=== PATIENT | female | born 1965 | race Caucasian/White ===

== ENCOUNTER 2020-11-28 14:08 | Inpatient (IN) | payer MEDICARE, MEDICAID ==
[~2020-11-28] VITALS: Ht 162.6 cm; Wt 56.9 kg
[2020-11-28] MEDS ORDERED: KETOROLAC 15 MG/ML VIAL. IVP ONE (14:30)
[2020-11-28] MEDS ORDERED: IV NORMAL SALINE 1,000ML 1,000 ML IV ONE ×3 (14:30→18:00)
[2020-11-28] MEDS ORDERED: ONDANSETRON PF 4 MG/2 ML VIAL. IVP ONE (14:30)
[2020-11-28] MEDS ORDERED: FAMOTIDINE 20 MG/2 ML VIAL IVP ONE (14:30)
--- NOTE | 2020-11-28 14:41 | PHYS DOC ---
General Adult EDM: Chief Complaint: OTHER COMPLAINTS HPI: HPI: History obtained from patient. Patient is a 55-year-old female past medical history significant for opioid dependence, cholecystectomy, hysterectomy who presents with chief complaint of abdominal pain with vomiting. She states she stopped taking her morphine 2 days ago. She states that she is not sure why she stopped taking it. She states she typically takes 20 mg of morphine 4-5 times a day. She states she is from [facility] that has as prescribed by different physician. She states that she just came in town to visit her daughter. She notes pain is diffuse in nature. She does note some loose stools. She has not multiple spells of nonbloody nonbilious emesis. States pain is cramping in nature. Denies chest pain or shortness of breath. Denies syncope. States she is had Suboxone in the past but has allergic reaction to this and codeine. Denies fevers. Denies urinary symptoms. No other complaints. Review of Systems: Review of Systems: Constitutional: Denies fever or chills Eyes: Denies change in visual acuity HENT: Denies nasal congestion or sore throat Respiratory: Denies cough or shortness of breath Cardiovascular: Denies chest pain or edema GI: Positive for abdominal pain,, nausea, loose stool : Denies dysuria Musculoskeletal: Denies back pain or joint pain Integument: Denies rash Neurologic: Denies headache, focal weakness or sensory changes Endocrine: Denies polyuria or polydipsia Lymphatic: Denies swollen glands Psychiatric: Denies depression or anxiety Current Medications: Current Meds: Current Medications Medications (Trade) Dose Ordered Sig/Brenda Start Time Stop Time Status Last Admin Dose Admin Famotidine (Pepcid Vial) 20 mg 1X ONCE 11/28/20 14:30 11/28/20 14:31 UNV Ketorolac Tromethamine (Toradol 15mg Vial) 15 mg 1X ONCE 11/28/20 14:30 11/28/20 14:31 UNV Ondansetron HCl (Zofran) 4 mg 1X ONCE 11/28/20 14:30 11/28/20 14:31 UNV Sodium Chloride 1,000 ml @ 1,000 mls/hr 1X ONCE 11/28/20 14:30 11/28/20 15:29 UNV Physical Exam: PE: Constitutional: Well developed, well nourished, no acute distress, non-toxic appearance. [] HENT: Normocephalic, atraumatic, bilateral external ears normal, oropharynx moist, no oral exudates, nose normal. [] Eyes: PERRLA, EOMI, conjunctiva normal, no discharge. [] Neck: Normal range of motion, no tenderness, supple, no stridor. [] Cardiovascular:Heart rate regular rhythm, no murmur [] Lungs & Thorax: Bilateral breath sounds clear to auscultation [] Abdomen: Bowel sounds normal, soft, no tenderness, no masses, no pulsatile masses. [] Skin: Warm, dry, no erythema, no rash. [] Back: No tenderness, no CVA tenderness. [] Extremities: No tenderness, no cyanosis, no clubbing, ROM intact, no edema. [] Neurologic: Alert and oriented X 3, normal motor function, normal sensory function, no focal deficits noted. [] Psychologic: Affect normal, judgement normal, mood normal. [] Current Patient Data: Labs: Laboratory Tests Test 11/28/20 14:58 White Blood Count 14.6 x10^3/uL Red Blood Count 5.79 x10^6/uL Hemoglobin 16.5 g/dL Hematocrit 48.9 % Mean Corpuscular Volume 84 fL Mean Corpuscular Hemoglobin 29 pg Mean Corpuscular Hemoglobin Concent 34 g/dL Red Cell Distribution Width 13.8 % Platelet Count 437 x10^3/uL Neutrophils (%) (Auto) 79 % Lymphocytes (%) (Auto) 12 % Monocytes (%) (Auto) 9 % Eosinophils (%) (Auto) 0 % Basophils (%) (Auto) 0 % Neutrophils # (Auto) 11.5 x10^3uL Lymphocytes # (Auto) 1.7 x10^3/uL Monocytes # (Auto) 1.4 x10^3/uL Eosinophils # (Auto) 0.0 x10^3/uL Basophils # (Auto) 0.0 x10^3/uL Sodium Level 140 mmol/L Potassium Level 3.2 mmol/L Chloride Level 92 mmol/L Carbon Dioxide Level 34 mmol/L Anion Gap 14 Blood Urea Nitrogen 29 mg/dL Creatinine 2.3 mg/dL Estimated GFR (Cockcroft-Gault) 22.2 BUN/Creatinine Ratio 13 Glucose Level 323 mg/dL Calcium Level 10.2 mg/dL Total Bilirubin 0.6 mg/dL Aspartate Amino Transf (AST/SGOT) 16 U/L Alanine Aminotransferase (ALT/SGPT) 28 U/L Alkaline Phosphatase 184 U/L Troponin I Quantitative < 0.017 ng/mL Total Protein 10.4 g/dL Albumin 4.4 g/dL Albumin/Globulin Ratio 0.7 Lipase 285 U/L Current Medications Medications (Trade) Dose Ordered Sig/Brenda Route PRN Reason Start Time Stop Time Status Last Admin Dose Admin Sodium Chloride 1,000 ml @ 1,000 mls/hr 1X ONCE IV 11/28/20 14:30 11/28/20 15:29 DC 11/28/20 15:23 Famotidine (Pepcid Vial) 20 mg 1X ONCE IVP 11/28/20 14:30 11/28/20 14:34 DC 11/28/20 15:24 Ketorolac Tromethamine (Toradol 15mg Vial) 15 mg 1X ONCE IVP 11/28/20 14:30 11/28/20 14:34 DC 11/28/20 15:24 Ondansetron HCl (Zofran) 4 mg 1X ONCE IVP 11/28/20 14:30 11/28/20 14:34 DC 11/28/20 15:23 Iohexol (Omnipaque 300 Mg/ml) 75 ml 1X ONCE IV 11/28/20 14:45 11/28/20 14:46 Cancel Info (Do NOT chart on this entry -- for MONITORING) 1 each PRN DAILY PRN MC SEE COMMENTS 11/28/20 14:45 11/30/20 14:44 Cancel EKG: EKG: EKG consistent with normal sinus rhythm. Ventricular rate 91 bpm. Left axis deviation noted. QTC noted to be 516. No acute ischemic change appreciated. No previous for comparison. [] Radiology/Procedures: Radiology/Procedures: [address] [address] IMAGING REPORT Signed PATIENT: JESSICA ENGLISH: [id number] : 1965 LOCATION: ER AGE: 55 SEX: F EXAM STATUS: REG ER ORD. PHYSICIAN: YONY RAMOS DO REASON: abd pain diffuse PROCEDURE: CT ABDOMEN PELVIS WO CONTRAST CT of the abdomen and pelvis without contrast. 11/28/2020 2:44 PM Indication: Reason: abd pain diffuse / Spl. Instructions: / History: Comparison Study: None. Technique: Multidetector CT imaging of the abdomen pelvis is obtained without administration of contrast. Findings: The visualized bilateral lung bases are clear. Prior cholecystectomy noted. Liver is unremarkable. Spleen is unremarkable. The adrenal glands are unremarkable. Visualized pancreas is unremarkable. There is a 3 mm nonobstructing stone in the superior pole the right kidney. Kidneys are otherwise unremarkable. There is a 2 mm round calcification in the expected region of the distal right ureter. Visualization is limited secondary to lack of surrounding fat .No associated hydronephrosis is seen. Findings may represent a small ureteral stone. No comparison is available for review. The bladder is unremarkable in appearance. There is mild distention of the stomach with fluid and minimal gas. The duodenum is also fluid-filled extending into the third portion of the duodenum. Remainder of the small bowel is decompressed. No evidence of small bowel obstruction is seen. No free fluid or free air is seen in the abdomen or pelvis. The large bowel is decompressed. The appendix is poorly visualized. No gross evidence of appendicitis is seen. Mild mesenteric fat stranding is seen. No acute osseous changes are identified. IMPRESSION: 1. Mild fluid distention of the stomach and duodenum. Mild mesenteric stranding. Findings could reflect gastroenteritis. A partial obstruction is felt to be less likely. 2. 2 mm calcification in the expected region of the distal right ureter. Visualization is somewhat limited secondary to lack of surrounding fat. No hydronephrosis is seen. Small nonobstructing ureteral stone is not excluded. CT DOSING PQRS STATEMENT: One or more of the following individualized dose reduction techniques were utilized for this examination: 1. Automated exposure control 2. Adjustment of the mA and/or kV according to patient size 3. Use of iterative reconstruction technique Electronically signed by: Arnold Gray MD (11/28/2020 3:13 PM) [id number] DICTATED AND SIGNED BY: ARNOLD GRAY MD DATE: 11/28/20 1502 CC: PCP,TOBIN; YONY RAMOS DO ~MTH0 0 [] Heart Score: Risk Factors: Risk Factors: DM, Current or recent (<one month) smoker, HTN, HLP, family history of CAD, obesity. Risk Scores: Score 0 - 3: 2.5% MACE over next 6 weeks - Discharge Home Score 4 - 6: 20.3% MACE over next 6 weeks - Admit for Clinical Observation Score 7 - 10: 72.7% MACE over next 6 weeks - Early Invasive Strategies Course & Med Decision Making: Course & Med Decision Making Pertinent Labs and Imaging studies reviewed. (See chart for details) [] Patient is a 55 female who presents with chief complaint of nausea, loose stool, diffuse abdominal discomfort. She does note that she stopped taking multiple home narcotic medications 2 days ago. Reasons unclear. Her symptoms could be related to opiate withdrawal. CT imaging does not reveal any acute surgical emergency. Nonspecific gastroenteritis changes. Patient's labs are concerning for RONAN potentially related to dehydration. Potassium 3.2. Hypochloremia noted. IV fluid resuscitation was initiated. She was given oral magnesium and potassium. I do feel she would benefit from hospitalization for treatment of her dehydration. Case discussed with hospitalist Dr. Guzman. He agrees with plan of care and is excepted the patient. She remains hemodynamically stable. hCe Disclaimer: Che Disclaimer: This electronic medical record was generated, in whole or in part, using a voice recognition dictation system. Departure Departure: Impression: Primary Impression: Acute renal failure Qualified Codes: N17.9 - Acute kidney failure, unspecified Additional Impressions: Hypokalemia Opioid withdrawal Abdominal pain Qualified Codes: R10.84 - Generalized abdominal pain Disposition: ADMITTED INPT THIS HOSP Condition: STABLE Referrals: PCPTOBIN (PCP) YONY RAMOS DO Nov 28, 2020 14:41
[2020-11-28] MEDS ORDERED: IOHEXOL 300 MG/ML 75 ML VIAL. IV ONE (14:45)
[2020-11-28] MEDS ORDERED: CONTRAST GIVEN. MC PRN (14:45)
--- NOTE | 2020-11-28 14:51 | RAD ---
XR CHEST 1V History: Reason: CP / Spl. Instructions: / History: Comparison: None. Findings: Ill-defined bibasilar opacities. No pleural effusion. No pneumothorax. Normal heart size. Calcified l eft midlung pulmonary nodule, likely prior granulomatous disease. Impression: 1. Ill-defined bibasilar opacities, likely atelectasis. Electronically signed by: Abdulkadir Gallardo DO (11/28/2020 2:49 PM) [id number]
--- NOTE | 2020-11-28 15:15 | RAD ---
CT of the abdomen and pelvis without contrast. 11/28/2020 2:44 PM Indication: Reason: abd pain diffuse / Spl. Instructions: / History: Comparison Study: None. Technique: Multidetector CT imaging of the abdomen pelvis is obtained without administration of contr ast. Findings: The visualized bilateral lung bases are clear. Prior cholecystectomy noted. Liver is unremarkable. Spleen is unremarkable. The adrenal glands are un remarkable. Visualized pancreas is unremarkable. There is a 3 mm nonobstructing stone in the superior pole the right kidney. Kidneys are otherwise unremarkable. There is a 2 mm round calcification in th e expected region of the distal right ureter. Visualization is limited secondary to lack of surroundi ng fat .No associated hydronephrosis is seen. Findings may represent a small ureteral stone. No colin rison is available for review. The bladder is unremarkable in appearance. There is mild distention of the stomach with fluid and minimal gas. The duodenum is also fluid-filled extending into the third portion of the duodenum. Remainder of the small bowel is decompressed. No e vidence of small bowel obstruction is seen. No free fluid or free air is seen in the abdomen or pelvi s. The large bowel is decompressed. The appendix is poorly visualized. No gross evidence of appendici tis is seen. Mild mesenteric fat stranding is seen. No acute osseous changes are identified. IMPRESSION: 1. Mild fluid distention of the stomach and duodenum. Mild mesenteric stranding. Findings could refle ct gastroenteritis. A partial obstruction is felt to be less likely. 2. 2 mm calcification in the expected region of the distal right ureter. Visualization is somewhat li mited secondary to lack of surrounding fat. No hydronephrosis is seen. Small nonobstructing ureteral stone is not excluded. CT DOSING PQRS STATEMENT: One or more of the following individualized dose reduction techniques were utilized for this examinat ion: 1. Automated exposure control 2. Adjustment of the mA and/or kV according to patient size 3. Use of iterative reconstruction technique Electronically signed by: Arnold Law MD (11/28/2020 3:13 PM) [id number]
[2020-11-28 15:25] LABS: BASO % 0 % (0-3); EOS % 0 % (0-3); HEMATOCRIT 48.9 % (36.0-47.0); HEMOGLOBIN 16.5 g/dL (12.0-15.5); LYMPH # 1.7 x10^3/uL (1.0-4.8); LYMPH % 12 % (24-48); MEAN CORPUSCULAR HEMOGLOBIN 29 pg (25-35); MEAN CORPUSCULAR HGB CONC 34 g/dL (31-37); MEAN CORPUSCULAR VOLUME 84 fL (79-100); MONO # 1.4 x10^3/uL (0.0-1.1); MONO % 9 % (0-9); NEUT # 11.5 x10^3uL (1.8-7.7); NEUT % 79 % (31-73); PLATELET COUNT 437 x10^3/uL (140-400); RED BLOOD COUNT 5.79 x10^6/uL (3.50-5.40); RED CELL DISTRIBUTION WIDTH 13.8 % (11.5-14.5); WHITE BLOOD COUNT 14.6 x10^3/uL (4.0-11.0)
[2020-11-28 15:45] LABS: CALCIUM 10.2 mg/dL (8.5-10.1); CREATININE 2.3 mg/dL (0.6-1.0); GFR 22.2; POTASSIUM 3.2 mmol/L (3.5-5.1)
[2020-11-28 15:46] LABS: ALBUMIN 4.4 g/dL (3.4-5.0); ALBUMIN/GLOBULIN RATIO 0.7 (1.0-1.7); TOTAL BILIRUBIN 0.6 mg/dL (0.2-1.0); TOTAL PROTEIN 10.4 g/dL (6.4-8.2)
--- NOTE | 2020-11-28 16:05 | EKG ---
[address] [address] Test Date: 2020-11-28 Test Time: 14:20:56 Pat Name: JESSICA ENGLISH Department: Room: Gender: F [employer] Supervisor: CLOTILDE : 1965 Requested By: YONY RAMOS Order Number: [id number] Reading MD: Measurements Intervals [place] Rate: 91 P: -9 [place]: 120 QRS: -34 QRSD: 86 T: 52 QT: 418 QTc: 516 Interpretive Statements SINUS RHYTHM LEFT ATRIAL ABNORMALITY ABNORMAL LEFT AXIS DEVIATION PROLONGED QT ABNORMAL ECG RI6.02 No previous ECG available for comparison
[2020-11-28] MEDS ORDERED: MAGNESIUM OXIDE 400 MG TABLET PO ONE (16:15)
[2020-11-28] MEDS ORDERED: ONDANSETRON PF 4 MG/2 ML VIAL. IVP PRN ×2 (16:15→17:45)
[2020-11-28] MEDS ORDERED: POTASSIUM CHLORIDE 20 MEQ TABLET.ER. PO ONE ×2 (16:15→18:30)
[2020-11-28] MEDS ORDERED: METOCLOPRAMIDE HCL 10 MG/2 ML VIAL. IVP ONE (16:15)
[2020-11-28 16:46] LABS: BACTERIA,URINE MANY /HPF (0-FEW); BILIRUBIN,URINE NEG (NEG); CLARITY,URINE CLOUDY; COLOR,URINE AMBER; GLUCOSE,URINE NEG (NEG); NITRITE,URINE NEG (NEG); SQUAMOUS EPITHELIAL CELL,UR MANY /LPF
[2020-11-28 16:47] LABS: GRANULAR CASTS,URINE OCC /HPF; HYALINE CASTS, URINE FEW /HPF
[2020-11-28] MEDS ORDERED: LISINOPRIL (18:01)
[2020-11-28] MEDS ORDERED: LANTUS (18:01)
[2020-11-28] MEDS ORDERED: ASPIRIN (18:01)
[2020-11-28] MEDS ORDERED: HUMALOG (18:01)
[2020-11-28] MEDS ORDERED: METOPROLOL (18:01)
[2020-11-28] MEDS ORDERED: MORPHINE (18:01)
[2020-11-28 18:05] VITALS: BP 183/111
[2020-11-28] MEDS: MORPHINE SULFATE 4 MG/ML DISP.SYRIN. IV PRN ×2 (18:24→22:36)
[2020-11-28] MEDS: LABETALOL 20 MG/4 ML DISP.SYRIN. IVP PRN ×2 (18:25→22:35)
[2020-11-28] MEDS ORDERED: POTASSIUM CHLORIDE 10MEQ 100 ML IV SCH ×2 (18:30)
--- NOTE | 2020-11-28 18:30 | HP ---
ADMIT DATE: 11/28/2020 HISTORY OF PRESENT ILLNESS: The patient is a 55-year-old female patient originally from [place] who came to be with her daughter and she presented with chief complaint of abdominal pain and vomiting. She stated that she stopped taking her morphine 2 days ago. She stated that she is not sure why she stopped taking it. She typically takes 20 mg of morphine 4-5 times a day. She stated she is from [place], [place] and that has prescribed by different physician. She stated just coming town to visit her daughter. She notes pain is diffuse in nature. She does note some loose stools and she has multiple episodes of nonbloody bilious emesis. States that she is cramping in nature. Denies any chest pain or shortness of breath. Denied any syncope. She stated that she has had Suboxone in the past, but has allergic reaction to this and codeine. Denied any fever. Denied any urinary symptoms or other complaints. She was extensively investigated in the Emergency Room, was found to have acute kidney injury. Her creatinine was 2.3. She has hypokalemia, also hyperglycemic. Her white cell count was slightly elevated at 14,600. She clearly dehydrated; however, her urine showed that the patient was cloudy, pH of 6.5, specific gravity 1.030. There is large amount of protein, negative for glucose, negative for leukocyte esterase. There were 3-5 rbc's, 5-10 wbc's, and too many bacteria. She has had a chest x-ray, which was ill-defined bibasilar opacities, likely atelectasis and a CT scan of the abdomen and pelvis without contrast showed that she has mild fluid distention of the stomach and duodenum. Mild mesenteric stranding. Findings could be reflective gastroenteritis, the partial obstruction is felt to be less likely. She has 2.2 mm calcification in the expected region of the distal right ureter. Visualization is somewhat limited secondary to lack of surrounding fat. No hydronephrosis seen. Small nonobstructing ureteral stone is not excluded. The patient was admitted with morphine withdrawal, acute kidney injury, hypokalemia, hyperglycemia. PAST MEDICAL HISTORY: Significant for hypertension, hyperlipidemia, type 2 diabetes. She has also chronic back pain. PAST SURGICAL HISTORY: Significant for cholecystectomy and hysterectomy. ALLERGIES: SHE IS ALLERGIC TO IODINATED CONTRAST MEDIA AND CODEINE. MEDICATIONS: She is currently on following medications: She is on aspirin, Humalog, Lantus, lisinopril, metoprolol, and morphine. FAMILY HISTORY: Noncontributory. SOCIAL HISTORY: She is on disability. She does smoke, does not drink alcohol and has been taking 20 mg morphine 4-5 times a day that she stopped about 2 days ago. Her daughter is in the and she came to visit. She is originally from [place], [place]. REVIEW OF SYSTEMS: As in history of present illness. PHYSICAL EXAMINATION: GENERAL: On arrival to the Emergency Room, she looked well and was clearly in no apparent respiratory distress. No pallor, jaundice, cyanosis or thyromegaly. No jugular venous distension. No limb edema. VITAL SIGNS: Her heart rate was 90, blood pressure was 165/88, temperature was 98, respiratory rate was 16, and oxygen saturation was 99% on room air. HEAD, EYES, EARS, NOSE AND THROAT: Showed normocephalic, atraumatic. NECK: Supple. HEART: Normal first and second heart sounds. No gallop, rub or murmur. CHEST: Clear to auscultation. No crepitation or rhonchi. ABDOMEN: Diffusely tender, but there is no guarding or rigidity. No organomegaly. All hernial orifice intact. Bowel sounds normal. NEUROLOGIC: She is awake, alert, responding appropriately. All cranial nerves intact. EXTREMITIES: She moves extremities spontaneously. LABORATORY DATA: Her lab work on arrival to the Emergency Room showed that her white cell count was 14,600, hemoglobin 16.5, hematocrit 48, MCV 84 and platelet count of 137,000 with normal manual differential. Her chemistry showed a serum sodium 140, potassium 3.2, chloride 92, bicarbonate 34, anion gap of 14, BUN 29, creatinine 2.3, estimated GFR was 22 mL per minute. Her glucose was 323, calcium was 10.2. Total bilirubin, AST, ALT were normal. Alkaline phosphatase slightly elevated. CK was 37. Total protein was high at 10.4. Albumin was 4.4 and serum lipase 285. ASSESSMENT: 1. Morphine withdrawal. 2. Acute kidney injury. 3. Hypokalemia. 4. Type 2 diabetes mellitus. 5. Hypertension. 6. Hyperlipidemia. 7. Chronic back pain. PLAN: Rehydrate aggressively. She has received 2 liters of fluid in the Emergency Room. We will add another liter and then switch her to half normal saline. She will be continued on morphine 4 mg IV every 4 hours and Zofran 4 mg IV every 4 hours, labetalol 10 mg IV every 4 hours systolic pressure more than 160. I will repeat all her labs tonight and tomorrow morning and decide further management accordingly. DOMINIC MCMULLEN MD DR: ABDON/ariella JOB#: [id number] / [id number]
[2020-11-28] MEDS ORDERED: DEXTROSE 50% 25 GM / 50ML DISP.SYRIN. IV PRN (19:30)
[2020-11-28] MEDS: IV 1/2 NORMAL SALINE 1,000 ML IV PRN (19:33)
[2020-11-28] MEDS ORDERED: MAGNESIUM OXIDE 400 MG TABLET PO SCH (21:00)
[2020-11-28] MEDS: INSULIN GLARGINE SYRINGE. SQ SCH (21:20)
[2020-11-28 22:25] VITALS: BP 177/82
[2020-11-29] MEDS: MORPHINE SULFATE 4 MG/ML DISP.SYRIN. IV PRN ×5 (02:33→20:02)
[2020-11-29] MEDS: IV 1/2 NORMAL SALINE 1,000 ML IV PRN ×4 (02:38→23:10)
[2020-11-29] MEDS ORDERED: hydrALAZINE 20 MG/ML VIAL. IV PRN (07:45)
[2020-11-29] MEDS: INSULIN LISPRO 300 UNITS/3 ML VIAL. SQ SCH ×3 (07:49→16:55)
[2020-11-29 07:58] VITALS: BP 197/91
[2020-11-29 10:57] VITALS: BP 195/95
[2020-11-29 13:41] LABS: HEMOGLOBIN 12.6 g/dL (12.0-15.5); RED BLOOD COUNT 4.44 x10^6/uL (3.50-5.40); RED CELL DISTRIBUTION WIDTH 13.5 % (11.5-14.5); WHITE BLOOD COUNT 11.9 x10^3/uL (4.0-11.0)
[2020-11-29 13:53] LABS: ALBUMIN/GLOBULIN RATIO 0.7 (1.0-1.7); TOTAL BILIRUBIN 0.5 mg/dL (0.2-1.0); TOTAL PROTEIN 7.6 g/dL (6.4-8.2)
[2020-11-29 13:57] LABS: POTASSIUM 2.8 mmol/L (3.5-5.1)
[2020-11-29] MEDS ORDERED: POTASSIUM CHLORIDE 20 MEQ TABLET.ER. PO ONE ×3 (14:30→16:30)
[2020-11-29] MEDS: POTASSIUM CHLORIDE 10MEQ 100 ML IV SCH ×4 (14:37→17:35)
[2020-11-29] MEDS: POTASSIUM CHLORIDE 20 MEQ TABLET.ER. PO SCH ×3 (14:38→16:45)
[2020-11-29] MEDS: hydrALAZINE 25 MG TABLET PO SCH ×2 (14:38→19:59)
--- NOTE | 2020-11-29 15:14 | PN ---
DATE: SUBJECTIVE: The patient is resting, slightly propped up in bed, in no apparent respiratory distress. She continued to complain of pain. Denied any further episodes of nausea or vomiting. Denied any diarrhea or abdominal pain. She is tolerating her diet. PHYSICAL EXAMINATION: GENERAL: When I examined her, she looked well and was clearly in no apparent respiratory distress. No pallor, jaundice, cyanosis or thyromegaly. No jugular venous distention. No lower limb edema. VITAL SIGNS: Her heart rate was 80, blood pressure was 195/95, temperature was 99.2, respiratory rate was 18 and oxygen saturation was 93% on room air. HEAD, EYES, EARS, NOSE AND THROAT: Showed normocephalic, atraumatic. NECK: Supple. HEART: Normal first and second heart sounds. No gallop, rub or murmur. CHEST: Clear to auscultation. No crepitation or rhonchi. ABDOMEN: Distended, soft, nontender. No guarding or rigidity. No organomegaly. All hernial orifice intact. Bowel sounds normal. NEUROLOGIC: She is grossly intact. Her intake over the last 24 hours was 4400, no output was recorded. LABORATORY DATA: Her lab work this morning showed a white cell count is down to 11,900; hemoglobin 12.6, hematocrit 37; MCV 83 and platelet count 321,000. Her chemistry showed a serum sodium 138, potassium 2.8, chloride 101, bicarbonate 29, anion gap of 8, BUN 22 and creatinine was 1. Her estimated GFR was 58 mL per minute. Her glucose 175, calcium was 8. Total bilirubin, AST, ALT, alkaline phosphatase were normal. Total protein was 7.6, albumin was 3. ASSESSMENT: 1. Morphine withdrawal, improving. 2. Acute kidney injury, resolving. Her creatinine came down from 2.3 to 1. 3. Hypokalemia, worsened. Her potassium this morning was 2.8. 4. Type 2 diabetes mellitus, seems to be reasonably controlled. 5. Hypertension, suboptimally controlled. 6. Hyperlipidemia. 7. Chronic back pain. PLAN: To continue with IV fluid, continue to monitor her blood sugar and adjust insulin as needed. Continue with pain management. Continue with potassium supplementation. I will start her back on her metoprolol and will hold off on lisinopril for now, continue with IV hydralazine. DOMINIC MCMULLEN MD DR: ABDON/ariella JOB#: [id number] / [id number]
[2020-11-29 15:16] LABS: MAGNESIUM 1.7 mg/dL (1.8-2.4)
[2020-11-29 17:06] VITALS: BP 191/114
[2020-11-29] MEDS ORDERED: ACETAMINOPHEN 325 MG TABLET PO PRN (18:00)
[2020-11-29 19:48] VITALS: BP 202/94
[2020-11-29] MEDS: INSULIN GLARGINE SYRINGE. SQ SCH (20:02)
[2020-11-29] MEDS ORDERED: METOPROLOL TART IMMED RELEASE 50 MG TABLET PO SCH (21:00)
[2020-11-29 22:13] VITALS: BP 218/101
[2020-11-30] VITALS (7 sets, daily range): BP systolic 146–203; BP diastolic 89–103
[2020-11-30] MEDS: MORPHINE SULFATE 4 MG/ML DISP.SYRIN. IV PRN ×2 (00:08→04:13)
[2020-11-30] MEDS: LABETALOL 20 MG/4 ML DISP.SYRIN. IVP PRN (04:13)
[2020-11-30] MEDS: IV 1/2 NORMAL SALINE 1,000 ML IV PRN (06:07)
[2020-11-30 06:12] LABS: HEMATOCRIT 38.4 % (36.0-47.0); HEMOGLOBIN 12.9 g/dL (12.0-15.5); RED BLOOD COUNT 4.56 x10^6/uL (3.50-5.40); RED CELL DISTRIBUTION WIDTH 13.6 % (11.5-14.5); WHITE BLOOD COUNT 11.6 x10^3/uL (4.0-11.0)
[2020-11-30 06:30] LABS: CALCIUM 8.3 mg/dL (8.5-10.1); CREATININE 0.7 mg/dL (0.6-1.0); GFR 87.5; POTASSIUM 3.7 mmol/L (3.5-5.1)
[2020-11-30] MEDS: INSULIN LISPRO 300 UNITS/3 ML VIAL. SQ SCH ×3 (07:51→17:00)
[2020-11-30] MEDS: METOPROLOL TART IMMED RELEASE 50 MG TABLET PO SCH ×2 (08:07→20:39)
[2020-11-30] MEDS: MORPHINE IR 15 MG TABLET PO PRN ×3 (08:08→20:39)
--- NOTE | 2020-11-30 19:26 | PN ---
DATE: SUBJECTIVE: The patient is sitting on the edge of the bed comfortably, in no apparent distress. She denied any further episodes of nausea, vomiting or diarrhea. Her blood pressure is much better controlled, although not optimally yet. PHYSICAL EXAMINATION: GENERAL: When I examined her, there was no pallor, jaundice, cyanosis or thyromegaly. No jugular venous distention. No lower limb edema. VITAL SIGNS: Her heart rate was 69, blood pressure was 140/80, temperature was 98.3, respiratory rate was 18 and oxygen saturation was 97%. HEAD, EYES, EARS, NOSE AND THROAT: Normocephalic, atraumatic. NECK: Supple. HEART: Showed normal first and second heart sounds. No gallop or murmur. CHEST: Clear to auscultation. No crepitation or rhonchi. ABDOMEN: Scaphoid, soft, nontender. NEUROLOGIC: She was grossly intact. Her intake was 4400, output was incompletely recorded. LABORATORY DATA: Her lab work as of this morning showed a white cell count of 11,600, hemoglobin 13, hematocrit 38, MCV 84 and platelet count 312,000. Her chemistry showed a serum sodium 137, potassium 3.7, chloride 104, bicarbonate 25, anion gap of 8, BUN 14, creatinine 0.7, estimated GFR was 87 mL per minute. Her glucose 118, calcium was 8.3. ASSESSMENT: 1. Morphine withdrawal, improving. 2. Acute kidney injury, resolved. Her creatinine is down to 0.7. 3. Hypokalemia, resolved. Her potassium is up to 3.7. 4. Type 2 diabetes mellitus, seems to be reasonably controlled. 5. Hypertension, suboptimally controlled. 6. Hyperlipidemia, for which she was on simvastatin. 7. Chronic back pain. PLAN: To continue to monitor her as we made adjustment to her antihypertensive medication. She is now on metoprolol 100 mg twice a day, hydralazine 50 mg 3 times a day. We switched her to morphine sulfate immediate release by mouth. We will continue with insulin sliding scale as well as Lantus insulin. Her blood sugar is very well controlled. If blood pressure remains stable, we will discharge her tomorrow. DOMINIC MCMULLEN MD DR: ABDON/ariella JOB#: [id number] / [id number]
[2020-11-30] MEDS: INSULIN GLARGINE SYRINGE. SQ SCH (20:40)
[2020-11-30] MEDS ORDERED: MELATONIN 3 MG TABLET PO PRN (23:00)
[2020-12-01] MEDS: MORPHINE IR 15 MG TABLET PO PRN ×2 (02:48→09:30)
[2020-12-01 06:36] VITALS: BP 171/87
[2020-12-01] MEDS: INSULIN LISPRO 300 UNITS/3 ML VIAL. SQ SCH ×2 (08:00→12:00)
[2020-12-01] MEDS: METOPROLOL TART IMMED RELEASE 50 MG TABLET PO SCH (08:28)
[2020-12-01 09:36] LABS: CALCIUM 8.3 mg/dL (8.5-10.1); CREATININE 0.7 mg/dL (0.6-1.0); GFR 87.5
[2020-12-01 09:46] LABS: POTASSIUM 3.1 mmol/L (3.5-5.1)
[2020-12-01] MEDS ORDERED: POTASSIUM CHLORIDE 20 MEQ TABLET.ER. PO ONE (10:00)
[2020-12-01 10:32] VITALS: BP 137/80
--- NOTE | 2020-12-01 13:03 | DS ---
DATE OF DISCHARGE: 12/01/2020 HOSPITAL COURSE: The patient is a 55-year-old female patient who was admitted with recurrent bouts of nausea, vomiting and diarrhea. She was diagnosed with morphine withdrawal, found also to have acute kidney injury and profound hypokalemia. She was rehydrated aggressively and her kidney function has normalized. Her potassium improved. She had no more nausea or vomiting. Her blood pressure was high, so we started her also on metoprolol and hydralazine. Her blood pressure has finally improved and a decision was made to discharge her home. PHYSICAL EXAMINATION: GENERAL: When I saw her today, she was sitting on the edge of the bed comfortably, in no apparent respiratory distress. No pallor, jaundice, cyanosis or thyromegaly. No jugular venous distension. No limb edema. VITAL SIGNS: Her heart rate was 63, blood pressure was 137/80, temperature was 97.9, respiratory rate 20, and oxygen saturation was 96% on room air. HEAD, EYES, EARS, NOSE AND THROAT: Showed normocephalic, atraumatic. NECK: Supple. HEART: Showed normal first and second heart sounds with no gallop, rub or murmur. CHEST: Clear to auscultation. No crepitation or rhonchi. ABDOMEN: Distended, soft, nontender. NEUROLOGIC: She was awake, alert, responding appropriately. All cranial nerves are intact. She moves extremities without difficulty. She ambulates without assistance or assistive devices. Her intake and output are incompletely recorded. LABORATORY DATA: Most recent white cell count was 11,600, hemoglobin 12.9, hematocrit 38, MCV 84, platelet count 312,000. Her chemistry showed a serum sodium 139, potassium 3.1, chloride 103, bicarbonate 25, anion gap of 11, BUN 24, creatinine 0.7, estimated GFR was 87 mL per minute. Her glucose was 98 and calcium was 8.3. Her urinalysis showed many bacteria; however, her urine culture has grown greater than 100,000 colony forming units per mL of Enterococcus faecalis that is vancomycin sensitive. DISCHARGE MEDICATIONS: She was discharged home to continue on metoprolol 100 mg twice a day, hydralazine 50 mg 3 times a day, morphine sulfate immediate release 15 mg every 6 hours, Lantus insulin 10 units at bedtime and Humalog insulin as insulin sliding scale 3 times a day before meals. She will be also discharged on amoxicillin 500 mg 3 times a day for 7 days. FINAL DISCHARGE DIAGNOSES: 1. Morphine withdrawal, resolved. 2. Acute kidney injury, resolved. Her creatinine came down from 2.8-0.7. 3. Hypokalemia, resolved. 4. Type 2 diabetes mellitus, seems to be reasonably controlled, currently on Lantus 10 units at bedtime and Humalog insulin before meals as per sliding scale. 5. Hypertension, reasonably controlled. 6. Hyperlipidemia for which she is on simvastatin. 7. Chronic back pain. 8. Urinary tract infection with growth of more than 100,000 colony forming units per mL of Enterococcus faecalis that is vancomycin-resistant. She was discharged on 500 mg of amoxicillin 3 times a day for 7 days. DOMINIC MCMULLEN MD DR: ABDON/ariella JOB#: [id number] / [id number]
== END 2020-12-01 13:33 | disposition home or self-care (01) | DRG 393 ==
LOC: ER 14:08 → 1 SOUTH 16:30 → ER 17:37
PROVIDERS: ADMIT Internal Medicine; ATTEND Internal Medicine
DX: K52.1 Toxic gastroenteritis and colitis (principal); N17.0 Acute kidney failure with tubular necrosis; F11.23 Opioid dependence with withdrawal; N39.0 Urinary tract infection, site not specified; J98.11 Atelectasis; E86.0 Dehydration; T40.2X5A Adverse effect of other opioids, initial encounter; E11.65 Type 2 diabetes mellitus with hyperglycemia; E78.5 Hyperlipidemia, unspecified; E87.6 Hypokalemia; G89.29 Other chronic pain; I10 Essential (primary) hypertension; Z79.4 Long term (current) use of insulin; Z87.891 Personal history of nicotine dependence; Z90.710 Acquired absence of both cervix and uterus; M54.9 Dorsalgia, unspecified; Z88.8 Allergy status to other drugs, medicaments and biological substances; B95.2 Enterococcus as the cause of diseases classified elsewhere; Z90.49 Acquired absence of other specified parts of digestive tract
CPT/HCPCS: 36415; 71045; 74176; 80048; 80053; 81001; 82550; 82947; 83690; 83735; 84484; 85025; 85027; 87077; 87086; 87186; 93005; 96361; 96374; 96375; J0360; J1815; J1885; J2270; J2405; J2765; J3480; J3490; J7030; U0003; 99285-25

== ENCOUNTER 2020-12-05 08:53 | Emergency (ER) | payer MEDICAID, MEDICARE ==
[~2020-12-05] VITALS: Ht 157.5 cm; Wt 56.9 kg
[~2020-12-05 08:53] MED LIST: ASPIRIN; HUMALOG; LANTUS; LISINOPRIL; METOPROLOL; MORPHINE
[2020-12-05] MEDS ORDERED: ORPHENADRINE CITRATE 60 MG/2 ML VIAL. IM ONE (09:45)
[2020-12-05] MEDS ORDERED: KETOROLAC 15 MG/ML VIAL. IVP ONE (09:45)
--- NOTE | 2020-12-05 09:58 | PHYS DOC ---
Past History Past Medical History: Diabetes, Hypertension Additional Past Medical Histor: opiate dependence Past Surgical History: No Surgical History Alcohol Use: None General Adult EDM: Chief Complaint: BACK PAIN OR INJURY HPI: HPI: Patient is a 55-year-old female coming in via EMS for back pain. Patient states she fell a few days ago and landed on her back and left shoulder. Patient states the fall was due to her right knee giving out when she has chronic right knee pain. Denies any loss of consciousness. Patient states the pain has been getting worse to where she is unable to walk and has a difficult time taking deep breaths secondary to pain. Patient has a history significant for chronic back pain and is chronically on opioids. Recently moved here from [place] to stay with daughter. Who was admitted 1 week ago for RONAN secondary to dehydration from gastroenteritis. Patient states she has had difficulty walking urinating as well secondary to pain. No lower extremity numbness or paresthesias. Is able to move her lower extremities but does complain of pain. She states she short s taken Tylenol, ibuprofen, and morphine this morning without relief. Review of Systems: Review of Systems: All other systems within normal limits except for as noted in the HPI Current Medications: Current Meds: Current Medications Medications (Trade) Dose Ordered Sig/Brenda Start Time Stop Time Status Last Admin Dose Admin Ketorolac Tromethamine (Toradol 15mg Vial) 15 mg 1X ONCE 12/05/20 09:45 12/05/20 09:46 DC Orphenadrine Citrate (Norflex) 60 mg 1X ONCE 12/05/20 09:45 12/05/20 09:46 DC Allergies: Allergies: Allergies Coded Allergies Type Severity Reaction Last Updated Verified Iodinated Contrast Media Allergy Intermediate 12/05/20 Yes buprenorphine Allergy Intermediate 12/05/20 Yes codeine Allergy Intermediate 12/05/20 Yes naloxone Allergy Intermediate 12/05/20 Yes Physical Exam: PE: Constitutional: Well developed, well nourished, no acute distress, non-toxic appearance. [] HENT: Normocephalic, atraumatic, bilateral external ears normal, nose normal. [] Eyes: PERRLA, conjunctiva normal, no discharge. [] Neck: No rigidity, supple, no stridor. [] Cardiovascular: Regular rate and rhythm, brisk cap refill [] Lungs & Thorax: Non labored symmetric respirations, no tachypnea or respiratory distress [] Abdomen: Soft, nondistended. Skin: Warm, dry, no erythema, no rash. [] Back: Unremarkable Extremities: No deformities, range of motion grossly intact, no lower extremity edema [] Neurologic: Alert and oriented X 3, no focal deficits noted. [] Psychologic: Affect normal, judgement normal, mood normal. [] Current Patient Data: Vital Signs: Vital Signs Date Time Temp Pulse Resp B/P (MAP) Pulse Ox O2 Delivery O2 Flow Rate FiO2 12/05/20 08:58 97.7 84 14 156/77 (103) 97 Room Air EKG: EKG: [] Radiology/Procedures: Radiology/Procedures: CHEST CT: Calcified left hilar lymph node is seen due to old granulomatous disease. No enlarged thoracic adenopathy is evident. No focal aneurysmal dilatation of the thoracic aorta is seen. Evaluation for intimal flap or dissection cannot be completed due to lack of IV contrast. There is significant calcified atheromatous disease of the coronary arteries. Heart size is mildly enlarged. No pericardial effusion is seen. Calcified granuloma of the posterior inferior aspect of the left upper lobe is seen. Consolidative infiltrates are seen within both posterior lower lobes. In addition, there is a nodular lung infiltrate within the anterior basal segment of the right lower lobe and a nodular lung infiltrate within the lateral basal segment of the left lower lobe. There is another nodular lung infiltrate within the anterior aspect of the left upper lobe measuring 18 mm. Small scattered tiny subcentimeter lung nodules are seen within the right middle lobe and right upper lobe. No pleural effusion or pneumothorax is seen. Proximal bronchial tree is patent. Old healed posterior rib fractures are seen. No acute rib fracture is evident. No compression fracture is evident. No lytic process is seen. IMPRESSION: Bilateral consolidative and nodular lung infiltrates of both posterior lower lobes. This was not seen 7 days ago. There is also a nodular lung infiltrate within the anterior left upper lobe. Findings may reflect infectious or inflammatory disease (such as aspiration pneumonitis) including the possibility of atypical pneumonia such as Covid 19 pneumonia. Mild cardiomegaly. Calcified atheromatous disease of the coronary arteries. ABDOMEN AND PELVIS CT: No hepatic mass is seen on this noncontrast study. No focal enlargement of the pancreas is seen. Spleen is enlarged measuring up to 19.6 cm. The spleen measured 15.6 cm previously. Spleen is homogeneous in appearance and this noncontrast study. The gallbladder is surgically absent. No extrahepatic biliary ductal dilatation is seen. No adrenal mass is evident. Nonobstructing punctate stone of the upper pole of the right kidney is seen. No hydronephrosis or hydroureter is evident. Calcified phleboliths of both sides anatomic pelvis are seen. Urinary bladder is moderately distended. Urinary bladder wall is smooth. Uterus is surgically absent. No focal aneurysmal dilatation of the abdominal aorta is seen. No bulky abdominal or pelvic lymphadenopathy is seen. No obstructive bowel pattern is evident. Previously seen dilatation of the stomach and duodenum has improved. There is a small amount of dependent free fluid within the pelvis. No free air is seen. No lytic process is seen. No compression fracture is seen. Sacrum is intact. IMPRESSION: Splenomegaly which has increased in size from 7 days ago. Small amount of free fluid within the dependent portion of the pelvis. Nonobstructing stone of the right kidney.[] Heart Score: Risk Factors: Risk Factors: DM, Current or recent (<one month) smoker, HTN, HLP, family history of CAD, obesity. Risk Scores: Score 0 - 3: 2.5% MACE over next 6 weeks - Discharge Home Score 4 - 6: 20.3% MACE over next 6 weeks - Admit for Clinical Observation Score 7 - 10: 72.7% MACE over next 6 weeks - Early Invasive Strategies Course & Med Decision Making: Course & Med Decision Making Pertinent Labs and Imaging studies reviewed. (See chart for details) Pneumonia and splenomegaly new from previous visit. Patient with strong drug- seeking behavior. Discussed with patient that she will get 1 prescription today but needs to find a chronic pain management clinic to follow-up with, discussed that we will not refill any more narcotics in the emergency department. Incidental splenomegaly on CT, discussed patient to follow-up with primary care, likely reactive secondary to infection. [] Che Disclaimer: Che Disclaimer: This electronic medical record was generated, in whole or in part, using a voice recognition dictation system. Departure Departure: Impression: Primary Impression: Pneumonia Additional Impression: Chronic back pain Disposition: 01 DC HOME SELF CARE/HOMELESS Condition: STABLE Referrals: PCP,NO (PCP) Patient Instructions: Pneumomediastinum Additional Instructions: You have been tested for or diagnosed with COVID-19. It is an infection caused by a new type of coronavirus. COVID-19 will cause cold-like or mild flu symptoms in most. It can cause more severe symptoms like problems breathing in some. There is no treatment for COVID-19. The body will clear the infection over time. Self-care will help to ease discomfort. Steps to Take: Self-Care Rest as needed. Healthy habits may help you feel better. Steps include: Choose healthy foods including fruits and vegetables. Drink water throughout the day. Get plenty of sleep each night. If you smoke, try to quit. It may ease breathing. Avoid alcohol. Keep Others Healthy The virus can spread to others. Droplets are released every time you sneeze or cough. The droplets can get into the mouth, nose, or eyes of people near you and lead to infection. To lower the chances of spreading COVID-19 to others: Stay at home until your doctor has said it is safe to leave. If you tested positive this will mean staying isolated until both of the following are true: At least 7 days have passed since the start of illness. You are free of fever for at least 72 hours without the use of medicine. During this time: - Avoid public areas, events, or transportation. Do not return to work or school until your doctor has said it is safe to do so. - Call ahead if you need to go to a medical center. Let them know you may have COVID-19. It will help them guide you where to go. They may also ask you to wear a facemask when you come to the office. - If you call for emergency medical services, let them know you may have COVID- 19. While at home: - Try to avoid close contact with others. Stay about 6 feet away. - If possible, spend most of your time in a separate room from others. - Use a face mask if you will be in close contact with others such as sharing a room or vehicle. - Have someone wipe down common surfaces in the home. Use household commercial installer every day on areas like doorknobs, counters, or sinks. - Cough or sneeze into a tissue. Throw the tissue away right after use. If a tissue is not available, cough or sneeze into your elbow. - Wash your hands often. Wash them after sneezing or coughing. Use soap and water and wash for at least 20 seconds. Alcohol based hand equipment cleaner can be used if soap and water is not available. - Do not prepare food for others. Avoid sharing personal items like forks, spoons, or toothbrushes. - Avoid close contact with pets while you are sick. There is no evidence of the virus passing to pets. This is a safety step until more is known about this virus. Isolation can be frustrating. Social interaction can help. Keep in touch with friends and family through phone and tech options. You can still interact with others in your home, just keep a safe distance of about 6 feet. Follow-up: Your doctors office will check in with you to see if there are any changes in your health. You may be asked to keep track of symptoms to share with them. They will also let you know when you are clear to be in public again. Problems to Look Out For: Contact your doctor if your recovery is not going as you expect. Get emergency care if you have problems such as: - Trouble breathing - Nonstop chest pain or pressure - Changes in awareness, confusion, or problems waking - Lips or face have bluish color - Worsening of symptoms If you think you have an emergency, call for emergency medical services right away. As taken from [employer] by [employer] Oxycodone Hcl/Acetaminophen (PERCOCET 10-325 MG TABLET ) 1 Each Tablet 1 TAB PO PRN Q6HRS PRN for PAIN, #15 TAB Prov: DARRELL MARTEL MD 12/05/20 Azithromycin (AZITHROMYCIN TABLET) 250 Mg Tablet 1 PKG PO UD for antibiotic for 5 Days, #6 TAB 0 Refills 2 the first day followed by 1 for days 2-5 Prov: DARRELL MARTEL MD 12/05/20 Prednisone (PREDNISONE) 50 Mg Tablet 1 TAB PO DAILY for steroid for 5 Days, #5 TAB You received this medication in the emergency room today. You will starting your next dose tomorrow. Prov: DARRELL MARTEL MD 12/05/20 DARRELL MARTEL MD Dec 05, 2020 09:58
[2020-12-05 10:21] LABS: BASO % 0 % (0-3); EOS # 0.1 x10^3/uL (0.0-0.7); EOS % 1 % (0-3); HEMATOCRIT 32.1 % (36.0-47.0); HEMOGLOBIN 10.6 g/dL (12.0-15.5); LYMPH # 0.4 x10^3/uL (1.0-4.8); LYMPH % 3 % (24-48); MEAN CORPUSCULAR HEMOGLOBIN 28 pg (25-35); MEAN CORPUSCULAR HGB CONC 33 g/dL (31-37); MEAN CORPUSCULAR VOLUME 85 fL (79-100); MONO # 1.1 x10^3/uL (0.0-1.1); MONO % 8 % (0-9); NEUT # 11.4 x10^3uL (1.8-7.7); NEUT % 87 % (31-73); PLATELET COUNT 221 x10^3/uL (140-400); RED BLOOD COUNT 3.77 x10^6/uL (3.50-5.40)
[2020-12-05 10:36] LABS: CALCIUM 8.3 mg/dL (8.5-10.1); CREATININE 0.9 mg/dL (0.6-1.0); GFR 65.5; POTASSIUM 3.8 mmol/L (3.5-5.1)
[2020-12-05 10:39] LABS: ALBUMIN 2.5 g/dL (3.4-5.0); ALBUMIN/GLOBULIN RATIO 0.6 (1.0-1.7); TOTAL BILIRUBIN 0.4 mg/dL (0.2-1.0)
--- NOTE | 2020-12-05 11:22 | RAD ---
CT STUDY OF THE CHEST AND ABDOMEN AND PELVIS WITHOUT CONTRAST CLINICAL INDICATIONS: Fall. Left upper and lower back pain. TECHNIQUE: Noncontrast helical CT scanning of the abdomen and pelvis was performed. Without contrast, the sensitivity to detect organ pathology and GI tract pathology is decreased. PQRS compliance Statement One or more of the following individualized dose reduction techniques were utilized for this study: 1. Automated exposure control 2. Adjustment of the mA and/or kV according to patient size 3. Use of iterative reconstruction technique COMPARISON: November 28, 2020. CHEST CT: Calcified left hilar lymph node is seen due to old granulomatous disease. No enlarged thora cic adenopathy is evident. No focal aneurysmal dilatation of the thoracic aorta is seen. Evaluation f or intimal flap or dissection cannot be completed due to lack of IV contrast. There is significant ca lcified atheromatous disease of the coronary arteries. Heart size is mildly enlarged. No pericardial effusion is seen. Calcified granuloma of the posterior inferior aspect of the left upper lobe is seen . Consolidative infiltrates are seen within both posterior lower lobes. In addition, there is a nodul ar lung infiltrate within the anterior basal segment of the right lower lobe and a nodular lung infil trate within the lateral basal segment of the left lower lobe. There is another nodular lung infiltra te within the anterior aspect of the left upper lobe measuring 18 mm. Small scattered tiny subcentime ter lung nodules are seen within the right middle lobe and right upper lobe. No pleural effusion or p neumothorax is seen. Proximal bronchial tree is patent. Old healed posterior rib fractures are seen. No acute rib fracture is evident. No compression fracture is evident. No lytic process is seen. IMPRESSION: Bilateral consolidative and nodular lung infiltrates of both posterior lower lobes. This was not seen 7 days ago. There is also a nodular lung infiltrate within the anterior left upper lobe. Findings may reflect infectious or inflammatory disease (such as aspiration pneumonitis) including t he possibility of atypical pneumonia such as Covid 19 pneumonia. Mild cardiomegaly. Calcified atheromatous disease of the coronary arteries. ABDOMEN AND PELVIS CT: No hepatic mass is seen on this noncontrast study. No focal enlargement of the pancreas is seen. Spleen is enlarged measuring up to 19.6 cm. The spleen measured 15.6 cm previously . Spleen is homogeneous in appearance and this noncontrast study. The gallbladder is surgically absen t. No extrahepatic biliary ductal dilatation is seen. No adrenal mass is evident. Nonobstructing punc [place] stone of the upper pole of the right kidney is seen. No hydronephrosis or hydroureter is evident . Calcified phleboliths of both sides anatomic pelvis are seen. Urinary bladder is moderately distend ed. Urinary bladder wall is smooth. Uterus is surgically absent. No focal aneurysmal dilatation of th e abdominal aorta is seen. No bulky abdominal or pelvic lymphadenopathy is seen. No obstructive bowel pattern is evident. Previously seen dilatation of the stomach and duodenum has improved. There is a small amount of dependent free fluid within the pelvis. No free air is seen. No lytic process is seen . No compression fracture is seen. Sacrum is intact. IMPRESSION: Splenomegaly which has increased in size from 7 days ago. Small amount of free fluid within the dependent portion of the pelvis. Nonobstructing stone of the right kidney. Electronically signed by: Yariel Smith MD (12/05/2020 11:20 AM) [id number]
[2020-12-05 11:40] LABS: BILIRUBIN,URINE NEG (NEG); CLARITY,URINE CLEAR; COLOR,URINE YELLOW; GLUCOSE,URINE >=1000 mg/dL (NEG)
[2020-12-05 11:41] LABS: AMORPHOUS SEDIMENT,UR PRESENT /HPF; BACTERIA,URINE 0 /HPF (0-FEW); NITRITE,URINE NEG (NEG); RBC,URINE RARE /HPF (0-2); SQUAMOUS EPITHELIAL CELL,UR MOD /LPF
[2020-12-05 12:01] LABS: AMPHETAMINE/METHAMPHETAMINE NEG (NEG); BARBITURATES NEG (NEG); BENZODIAZEPINES NEG (NEG); CANNABINOIDS NEG (NEG); COCAINE NEG (NEG); METHADONE NEG (NEG); OPIATES POS (NEG); PHENCYCLIDINE NEG (NEG)
[2020-12-05 12:29] VITALS: BP 167/84
[2020-12-05] MEDS ORDERED: HYDROmorphone PF 1 MG/ML DISP.SYRIN IVP ONE (12:30)
[2020-12-05] MEDS ORDERED: PRED50TA PO (12:36)
[2020-12-05] MEDS ORDERED: AZIT250T6 PO (12:36)
[2020-12-05] MEDS ORDERED: OXYC1TAB22 PO (12:39)
== END 2020-12-05 15:25 | disposition home or self-care (01) ==
LOC: ER 08:53
DX: J18.9 Pneumonia, unspecified organism (principal); G89.29 Other chronic pain; M54.89 Other dorsalgia; E11.9 Type 2 diabetes mellitus without complications; I10 Essential (primary) hypertension; Z20.822 Contact with and (suspected) exposure to COVID-19; Z91.041 Radiographic dye allergy status; Z88.5 Allergy status to narcotic agent; Z88.8 Allergy status to other drugs, medicaments and biological substances; Z79.899 Other long term (current) drug therapy
CPT/HCPCS: 36415; 71250; 74176; 80053; 80307; 81001; 85025; 96372; 96374; 96375; 99285; C9803; J1170; J1885; J2360; P9612; U0003

== ENCOUNTER 2020-12-11 18:31 | Inpatient (IN) | payer MEDICARE ==
[~2020-12-11] VITALS: Ht 157.5 cm; Wt 60.8 kg
[~2020-12-11 18:31] MED LIST changes: +AZIT250T6 PO; +OXYC1TAB22 PO; +PRED50TA PO
[2020-12-11] MEDS ORDERED: ASPIRIN 325 MG TABLET PO ONE (19:00)
[2020-12-11] MEDS ORDERED: DEXAMETHASONE SOD PHOS 10 MG/ML VIAL. IV ONE (19:00)
[2020-12-11] MEDS ORDERED: IV NORMAL SALINE 1,000ML 1,000 ML IV ONE (19:00)
--- NOTE | 2020-12-11 19:21 | PHYS DOC ---
Past History Past Medical History: COPD, Diabetes, Hypertension, [place] Additional Past Medical Histor: opiate dependence Past Surgical History: Hysterectomy, Tonsillectomy Smoking: Cigarettes Alcohol Use: None Drug Use: Opiates General Adult EDM: Chief Complaint: CHEST PAIN HPI: HPI: Patient is a 55-year-old female who is presenting to the emergency department with chest pain and shortness of breath. She states her symptoms began 5 days ago and include a generalized pleuritic chest pain and nonpositional nonexertional shortness of breath. She also complains of generalized fatigue, nausea, and a productive cough with brown sputum and generalized malaise. She was seen here 5 days ago and prescribed azithromycin for a pneumonia seen on CT. Patient also had COVID testing obtained which was negative. She states she has been taking her medications as prescribed. She denies any subjective fever, chills, abdominal pain, or black / bloody stool. She denies any personal history of cancer, blood clots in her legs or lung, or recent surgery. Reports some right hand swelling and erythema. Review of Systems: Review of Systems: Constitutional: Admits to fatigue and malaise, denies fever or chills Eyes: Denies redness or eye pain HENT: Denies nasal congestion or sore throat Respiratory: Admits productive cough and shortness of breath Cardiovascular: Admits chest pain denies palpitations GI: Admits nausea denies abdominal pain or vomiting : Denies dysuria or hematuria, frequency or urgency Musculoskeletal: Admits myalgias denies back pain or joint pain Integument: Denies rash or skin lesions Neurologic: Denies headache, focal weakness or sensory changes Complete systems were reviewed and found to be within normal limits, except as documented in this note. Current Medications: Current Meds: Current Medications Medications (Trade) Dose Ordered Sig/Brenda Start Time Stop Time Status Last Admin Dose Admin Aspirin (Jaymie Aspirin) 325 mg 1X ONCE 12/11/20 19:00 12/11/20 19:07 DC Dexamethasone Sodium Phosphate (Decadron) 10 mg 1X ONCE 12/11/20 19:00 12/11/20 19:07 DC Sodium Chloride 1,000 ml @ 1,000 mls/hr 1X ONCE 12/11/20 19:00 12/11/20 19:59 Allergies: Allergies: Allergies Coded Allergies Type Severity Reaction Last Updated Verified Iodinated Contrast Media Allergy Intermediate 12/05/20 Yes buprenorphine Allergy Intermediate 12/05/20 Yes codeine Allergy Intermediate 12/05/20 Yes naloxone Allergy Intermediate 12/05/20 Yes Physical Exam: PE: Constitutional: Tearful, well developed, well nourished, no acute distress, non- toxic appearance HENT: Normocephalic, atraumatic Eyes: PERRL, EOMI, conjunctiva normal, no discharge Neck: Normal range of motion, no tenderness, supple Cardiovascular: Tachycardic, regular rate, no murmur Lungs & Thorax: Crackles in right lower lung base, wheezes throughout tachypneic. No respiratory distress, equal chest rise and fall Abdomen: Soft, no tenderness Skin: Swelling to right hand, warm and erythema extending to wrist. Warm, dry Back: No tenderness, no CVA tenderness Extremities: No tenderness, ROM intact, no edema Neurologic: Alert and oriented X 3, normal motor function, normal sensory function, no focal deficits noted Psychologic: Affect normal, judgment normal Current Patient Data: Vital Signs: Vital Signs Date Time Temp Pulse Resp B/P (MAP) Pulse Ox O2 Delivery O2 Flow Rate FiO2 12/11/20 18:40 99.7 116 30 137/78 (97) 92 Room Air EKG: EK. Sinus tachycardia at a rate of 115 bpm. Left axis deviation. No ST segment elevations or depressions. QTQTc 314 ms436 ms Radiology/Procedures: Radiology/Procedures: PROCEDURE: PORTABLE CHEST 1V AP chest x-ray HISTORY: Chest pain. COMPARISON: CT chest February 02, 2021. FINDINGS: Heart size normal. Mediastinal silhouette is normal. Calcified granuloma left lung base. Mild interstitial and alveolar infiltrates at the lung bases with slightly greater density at the right lateral lung base relative to the prior study. No pneumothorax or pleural effusions. Bones are unremarkable. IMPRESSION: Basilar infiltrates could represent pulmonary edema, extensive areas of atelectasis or pneumonia including atypical viral pneumonitis. See above. Electronically signed by: Orville Ross MD (12/11/2020 8:14 PM) [facility] Heart Score: HEART Score for Chest Pain: HEART Score for Chest Pain Response (Comments) Value History Moderately Suspicious 1 ECG Normal 0 Age >45 - < 65 1 Risk Factors >3 Risk Factors or Hx CAD 2 Troponin < Normal Limit 0 Total 4 Risk Factors: Risk Factors: DM, Current or recent (<one month) smoker, HTN, HLP, family hist ory of CAD, obesity. Risk Scores: Score 0 - 3: 2.5% MACE over next 6 weeks - Discharge Home Score 4 - 6: 20.3% MACE over next 6 weeks - Admit for Clinical Observation Score 7 - 10: 72.7% MACE over next 6 weeks - Early Invasive Strategies Course & Med Decision Making: Course & Med Decision Making Pertinent Labs and Imaging studies reviewed. (See chart for details) Patient is a 55-year-old female with a known pneumonia presenting with pleurtic chest pain. EKG stable. SIRS criteria met with tachypnea and tachycardia. WBC elevated. Troponin WNL. BNP slightly elevated. BUN/Creat elevated from prior per [employer] review. CXR with findings of continued atypical pneumonia pattern. Empiric antibiotics given. IVF hydration given. Concern for failed outpatient therapy. Concern for cellulitis of right hand. Cannot fully exclude DVT. Venous doppler of RUE ordered for AM. Patient requiring admission for further evaluation and treatment. Discussed with Dr. Rich (hospitalist) who is in agreement with admission. Discussed findings and plan with patient, who acknowledges understanding and agreement. Che Disclaimer: [employer] Disclaimer: This electronic medical record was generated, in whole or in part, using a voice recognition dictation system. Departure Departure: Impression: Primary Impression: Pneumonia Qualified Codes: J18.9 - Pneumonia, unspecified organism Additional Impressions: Acute kidney injury Failure of outpatient treatment Cellulitis of right hand Disposition: ADMITTED INPT THIS HOSP Admitting Physician: Yassine Rich Condition: STABLE Referrals: PCP,TOBIN (PCP) MANUEL REDD DO Dec 11, 2020 19:21
[2020-12-11 19:51] LABS: BASO % 0 % (0-3); EOS % 0 % (0-3); HEMOGLOBIN 10.8 g/dL (12.0-15.5); LYMPH # 0.4 x10^3/uL (1.0-4.8); LYMPH % 2 % (24-48); MEAN CORPUSCULAR HEMOGLOBIN 28 pg (25-35); MEAN CORPUSCULAR HGB CONC 33 g/dL (31-37); MEAN CORPUSCULAR VOLUME 86 fL (79-100); MONO # 0.6 x10^3/uL (0.0-1.1); MONO % 4 % (0-9); NEUT # 15.3 x10^3uL (1.8-7.7); NEUT % 94 % (31-73); PLATELET COUNT 141 x10^3/uL (140-400); RED BLOOD COUNT 3.85 x10^6/uL (3.50-5.40); RED CELL DISTRIBUTION WIDTH 13.7 % (11.5-14.5); WHITE BLOOD COUNT 16.3 x10^3/uL (4.0-11.0)
[2020-12-11 19:57] LABS: ANION GAP 10 (6-14); BLOOD UREA NITROGEN 42 mg/dL (7-20); BUN/CREATININE RATIO 32 (6-20); CALCIUM 8.3 mg/dL (8.5-10.1); CARBON DIOXIDE 23 mmol/L (21-32); CHLORIDE 99 mmol/L (98-107); CREATININE 1.3 mg/dL (0.6-1.0); GFR 42.8; GLUCOSE 245 mg/dL (70-99); POTASSIUM 4.5 mmol/L (3.5-5.1); SODIUM 132 mmol/L (136-145)
[2020-12-11] MEDS ORDERED: PIPERACILLIN/TAZOBACTAM 4.5 GM in IV NORMAL SALINE 50ML 50 ML IV ONE (20:00)
[2020-12-11] MEDS ORDERED: PIPERACILLIN/TAZOBACTAM 4.5 GM VIAL IV ONE (20:02)
[2020-12-11] MEDS ORDERED: IV NORMAL SALINE 50ML 50 ML ONE (20:02)
--- NOTE | 2020-12-11 20:17 | RAD ---
AP chest x-ray HISTORY: Chest pain. COMPARISON: CT chest February 02, 2021. FINDINGS: Heart size normal. Mediastinal silhouette is normal. Calcified granuloma left lung base. Mi ld interstitial and alveolar infiltrates at the lung bases with slightly greater density at the right lateral lung base relative to the prior study. No pneumothorax or pleural effusions. Bones are unrem arkable. IMPRESSION: Basilar infiltrates could represent pulmonary edema, extensive areas of atelectasis or pn eumonia including atypical viral pneumonitis. See above. Electronically signed by: Orville Ross MD (12/11/2020 8:14 PM) [facility]
[2020-12-11 20:26] LABS: ALBUMIN 2.3 g/dL (3.4-5.0); ALBUMIN/GLOBULIN RATIO 0.4 (1.0-1.7); ALK PHOS 151 U/L (46-116); ALT (SGPT) 22 U/L (14-59); AST (SGOT) 19 U/L (15-37); LIPASE 78 U/L (73-393); MAGNESIUM 1.8 mg/dL (1.8-2.4); TOTAL BILIRUBIN 0.8 mg/dL (0.2-1.0); TOTAL PROTEIN 7.6 g/dL (6.4-8.2)
[2020-12-11] MEDS ORDERED: DEXTROSE 50% 25 GM / 50ML DISP.SYRIN. IV PRN (20:45)
[2020-12-11] MEDS ORDERED: ACETAMINOPHEN 325 MG TABLET PO PRN (20:45)
[2020-12-11] MEDS ORDERED: ONDANSETRON PF 4 MG/2 ML VIAL. IVP PRN (20:45)
[2020-12-11] MEDS ORDERED: VANCOMYCIN 1.25 GM in IV NORMAL SALINE 250ML 250 ML IV ONE (21:00)
[2020-12-11 21:29] LABS: % LYMPHS 5 % (24-48); % MONOS 3 % (0-10); % SEGS 92 % (35-66)
[2020-12-11 21:30] LABS: PLT ESTIMATE ADEQUATE (ADEQUATE)
[2020-12-11] MEDS: IV NORMAL SALINE 1,000ML 1,000 ML IV SCH (21:35)
--- NOTE | 2020-12-11 23:41 | EKG ---
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
[2020-12-12 05:38] VITALS: BP 123/77
--- NOTE | 2020-12-12 06:02 | NUR ---
NURSING NOTE ADMIT PT ADMIT TO ROOM 121 FROM ED FOR DX OF PNEUMONIA. PT STATES SHE WAS JUST HERE AND SENT HOME AND HAVING INCREASE WOB AND CHEST PAIN. PT SETTLED IN ROOM. WILL NOTIFY DR SCHAEFFER OF ARRIVAL. BERNADETTE ARMENTA.
[2020-12-12] MEDS: INSULIN LISPRO 300 UNITS/3 ML VIAL. SQ SCH ×3 (08:19→17:42)
--- NOTE | 2020-12-12 09:10 | RAD ---
EXAMINATION: US DPLX VENOUS EXTREMITY UPPER RT (UPPER EXTREMITY VENOUS ULTRASOUND) CLINICAL HISTORY: Right hand swelling concerning for DVT TECHNIQUE: Sonographic grayscale images obtained of the right upper extremity deep venous system with color flow Doppler, compression, and augmentation techniques as indicated. Images obtained and stor ed in a permanent archive. COMPARISON: None FINDINGS: No evidence of absent flow or incompressibility within the internal jugular, subclavian, axillary, an d brachial veins. Visualized radial and ulnar veins appear patent on limited evaluation. No evidence of absent flow or incompressibility within the superficial basilic and cephalic veins. IMPRESSION: No evidence of right upper extremity DVT. Electronically signed by: Madan Vaughan DO (12/12/2020 9:08 AM) [id number]
--- NOTE | 2020-12-12 09:43 | NUR ---
NURSING NOTE PT DAUGHTER CALLED, STATES PT WAS HERE PRIOR TO WITHDRAWAL FROM DRUGS. PT DAUGHTER STATES SHE TOOK HER LAST MORPHINE PILL YESTERDAY AND THAT IS WHY SHE CAME BACK TO ER. PT DAUGHTER STATES THAT SHE ALSO REQUESTED PAIN MEDICATION LAST TIME SHE WAS HERE, AND GOT IT, AND ALREADY HAD PAIN MEDS AT HOME, SO THE DAUGHTER DID NOT GIVE THEM TO HER. PT DAUGHTER STATES TO NOT TELL PT JESSICA THAT SHE CALLED TO TELL US THAT BUT STATES SHE WANTED MORE PAIN MEDICATION. BERNADETTE ARMENTA.
[2020-12-12] MEDS: IV NORMAL SALINE 1,000ML 1,000 ML IV SCH ×2 (09:58→19:42)
[2020-12-12 11:00] VITALS: BP 108/54
[2020-12-12] MEDS ORDERED: NICOTINE POLACRILEX GUM 2 MG GUM. BC PRN (11:00)
[2020-12-12] MEDS: VANCOMYCIN PER PHARMACY MC PRN (11:51)
--- NOTE | 2020-12-12 11:53 | NUR ---
Pharmacy Vancomycin Dosing Note S:Consulted to monitor and dose vancomycin started 12/11/20. O:JESSICA ENGLISH is a 55 year old F with Cellulitis Pneumonia, . Height: 5 feet, 2 inches Weight: 54.6 kg [place] Body Weight: 50.10 Adjusted Body Weight: 51.66 Dosing Weight: Actual Other Antibiotics: LEVOFLOXACIN 750MG Q48HRS/ ZOSYN 3.375GRAM Q6HRS LABS: Last BUN: 42 Last Creatinine: 1.3 Creatinine Clearance: Last WBC: 16.3 Last Procalcitonin: Tmax (past 24 hours): Microbiology: I/O: Drug Levels: Last level: on at Last dose given 12/11/20 at 2100 Vancomycin Dosing: Loading Dose: 1250 mg x1 Dosing Weight: Actual Target Trough: 15-20 A: Based on: P: 1. Begin Vancomycin 1000 mg IV q24h 2. Follow up Trough level on 12/13/20 at 2030 3. Pharmacy will continue to monitor, follow and adjust therapy as needed. LOWELL KENNEDY [facility], 12/12/20 [id number]
[2020-12-12] MEDS ORDERED: PIPERACILLIN/TAZOBACTAM 2.25 GM in IV NORMAL SALINE 50ML 50 ML IV SCH (12:00)
[2020-12-12] MEDS: PIPERACILLIN/TAZOBACTAM 3.375 GM in IV NORMAL SALINE 50ML 50 ML IV SCH ×3 (12:25→23:33)
[2020-12-12 14:58] VITALS: BP 133/72
--- NOTE | 2020-12-12 17:44 | HP ---
ADMIT DATE: 12/12/2020 HISTORY OF PRESENT ILLNESS: The patient is a 55-year-old female patient who came to the Emergency Room complaining of chest pain and shortness of breath. She stated her symptoms started about 5 days ago and include generalized pleuritic chest pain and nonpositional not exertional shortness of breath. She also complained of generalized fatigue, nausea and productive cough with brownish sputum and generalized malaise. She was seen 5 days ago at the Emergency Room and was prescribed azithromycin for pneumonia seen on CT scan. The patient also had COVID testing obtained and was negative. She states she has been taking her medication as prescribed. She denied any subjective fever, chills, abdominal pain, black or bloody stool. Denied any personal history of cancer, clots in legs or lungs or recent surgery. She also reported right hand swelling and erythema. She stated that she has never injected any drugs, although there are many signs in her legs that might be suggestive injection. She was extensively investigated and was found to have leukocytosis with a white cell count of 16,300. Her chemistry showed she is also dehydrated with a BUN of 42, creatinine 1.3 and glucose 245 and she was basically treated with piperacillin and tazobactam, levofloxacin, was given vancomycin, was admitted for further evaluation and treatment. According to the nursing staff, she also had multiple episodes of loose bowel movement. PAST MEDICAL HISTORY: Significant for hypertension, hyperlipidemia and type 2 diabetes. She also has chronic back pain. PAST SURGICAL HISTORY: Significant for cholecystectomy and hysterectomy. ALLERGIES: She is allergic to IODINATED CONTRAST MEDIA AND CODEINE. MEDICATIONS: She was discharged on 12/01/2020 on following medications: She was discharged on hydralazine 50 mg 3 times a day, metoprolol 100 mg twice a day, morphine sulfate immediate release 50 mg every 6 hours, Lantus insulin 10 units at bedtime, Humalog insulin has been using sliding scale 3 times a day. She was also discharged on amoxicillin 500 mg 3 times a day for 7 days. At that time, her urine culture has grown more than 100,000 colony forming units per mL of Enterococcus faecalis that is vancomycin sensitive. FAMILY HISTORY: Noncontributory. SOCIAL HISTORY: She is on disability. She does smoke, does not drink alcohol and has been taking 20 mg of morphine 4-5 times a day that she stopped about 2 days ago. Her daughter is in the and she came to visit. She is originally from [place], [place]. REVIEW OF SYSTEMS: As per history of present illness. PHYSICAL EXAMINATION: GENERAL: On arrival to the Emergency Room, she apparently was tachypneic, tachycardic, pale, but no jaundice or cyanosis. No lymphadenopathy, no thyromegaly. No jugular venous distention. No lower limb edema. VITAL SIGNS: Her heart rate was 112, blood pressure was 135/73, temperature was 99.7, respiratory rate was 23, and oxygen saturation was 96% on room air. HEAD, EYES, EARS, NOSE AND THROAT: Showed normocephalic, atraumatic. NECK: Supple. HEART: Showed normal first and second heart sounds. No gallop, rub or murmur. CHEST: Showed central trachea, equal bilateral chest expansion, air entry, vesicular sounds. I could not appreciate any crepitation or rhonchi. ABDOMEN: Distended, soft, nontender. NEUROLOGIC: She was grossly intact. Dorsum of the right hand is definitely more swollen and slightly erythematous compared to the left hand and she has multiple scars __ healing wounds in both legs. I do not know whether these are sites of IV drug injection. LABORATORY DATA: Showed that her white cell count was 16,300, hemoglobin 11, hematocrit 33, MCV 86 and platelet count of 141,000 with a manual differential showed 94% polymorphs, 2% lymphocytes and 4% monocytes. Her chemistry showed serum sodium of 132, potassium 4.5, chloride 99, bicarbonate 23, anion gap of 10, BUN 42, creatinine 1.3, estimated GFR was 42 mL per minute. Her glucose was 245. Lactic acid is 1.5, calcium was 8.3, and magnesium was 1.8. Total bilirubin, AST, ALT were normal. Alkaline phosphatase slightly elevated. Her beta natriuretic peptide was 1500. Total protein was 7.6, albumin 2.3 and lipase was 78. Her chest x-ray showed the heart size is normal, mediastinal silhouette is normal, calcified granuloma the left lung base. She has mild interstitial and alveolar infiltrates at the lung bases with slightly greater density in the right lateral lung base, relative to the prior study and no pneumothorax or pleural effusion. Bones are unremarkable. She did have a venous Doppler ultrasound of her right upper extremity, which showed no evidence of absent flow incompressibility within the internal jugular, subclavian, axillary and brachial veins and visualized radial and ulnar veins appears patent on limited evaluation. There is no evidence of absent flow or incompressibility within the superficial basilic and cephalic veins. IMPRESSION: There is no evidence of right upper extremity deep venous thrombosis. PLAN: My plan is obviously to continue with IV antibiotic in the form of Zosyn and vancomycin. I will arrange for continue with IV fluid for dehydration. I will arrange also for CT scan of the abdomen and pelvis without contrast and we will decide on further management accordingly. DOMINIC MCMULLEN MD DR: ABDON/ariella JOB#: [id number] / [id number]
--- NOTE | 2020-12-12 18:42 | RAD ---
Exam: CT of abdomen and pelvis without contrast INDICATION: Abdominal pain TECHNIQUE: Sequential axial images through the abdomen and pelvis obtained without IV contrast. Sagit valarie and coronal reformatted images were reconstructed from the axial data and reviewed. Comparisons: None FINDINGS: Heart size is normal. No pericardial effusion. Strandy opacities at the lung bases bilaterally. No pl eural effusion. Evaluation solid organs is limited secondary to noncontrast technique. Liver, pancreas and adrenals are unremarkable. Spleen is enlarged measuring 19.5 cm. No perinephric inflammation or hydronephrosis. Nonobstructing right renal calculi are noted. No urete ral calculi are identified. Bladder is decompressed not well evaluated. Uterus is absent. No abnormal adnexal mass. Postsurgical changes are noted at the rectum. Remainder large and small bowel are unremarkable. No fr ee abdominal air or fluid. Abdominal aorta has a normal course and caliber. No enlarged abdominal lymph nodes are identified. No suspicious osseous lesions or acute fractures. IMPRESSION: 1. Nonobstructing right renal calculus. No evidence for obstructive uropathy. 2. Splenomegaly Exposure: One or more of the following in the visualized dose reduction techniques were utilized for this examination: 1. Automated exposure control 2. Adjustment of the MA and/or KV according to patient size 3. Use of iterative of reconstructive technique Electronically signed by: Evan Hastings MD (12/12/2020 6:40 PM) [facility]
--- NOTE | 2020-12-12 18:53 | RAD ---
INDICATION : Reason: sudden enlargment of the spleen / Spl. Instructions: / History: COMPARISON: CT from earlier same day TECHNIQUE: Multiple ultrasound images obtained through the abdomen in grayscale and color. FINDINGS: Liver: Enlarged, 24 cm. Mildly echogenic. Portal vein is 19 mm. Gallbladder: Removed IVC: Partially distended at level of liver. Common Bile Duct: 8 mm Pancreas: No gross abnormality identified in visualized portions of pancreas. Right Kidney: Mild hydronephrosis. Spleen is 17.7 cm. Prominent vessels of the braulio. No definite right-sided hydronephrosis IMPRESSION: * Hepatosplenomegaly is identified. Portal vein is prominent in size therefore portal hypertension is not excluded. * Mildly echogenic liver. Nonspecific but can be seen with fatty infiltration. * Mild right-sided hydronephrosis Electronically signed by: Sae Nguyen MD (12/12/2020 6:51 PM) [id number]
[2020-12-12] MEDS: VANCOMYCIN 1 GM in IV NORMAL SALINE 250ML 250 ML IV SCH (19:42)
[2020-12-12] MEDS: LACTOBACILLUS RHAMNOSUS GG 1 CAPSULE. PO SCH (20:39)
[2020-12-12 20:51] VITALS: BP 134/71
[2020-12-12] MEDS: MORPHINE SULFATE 4 MG/ML DISP.SYRIN. IV PRN (21:54)
[2020-12-12] MEDS: MELATONIN 3 MG TABLET PO PRN (23:32)
[2020-12-13] MEDS: ONDANSETRON PF 4 MG/2 ML VIAL. IVP PRN ×3 (00:31→14:25)
[2020-12-13 01:32] VITALS: BP 143/71
[2020-12-13] MEDS: MORPHINE SULFATE 4 MG/ML DISP.SYRIN. IV PRN ×6 (01:59→22:16)
[2020-12-13] MEDS: IV NORMAL SALINE 1,000ML 1,000 ML IV SCH ×3 (03:30→23:30)
[2020-12-13] MEDS: PIPERACILLIN/TAZOBACTAM 3.375 GM in IV NORMAL SALINE 50ML 50 ML IV SCH ×3 (05:16→17:25)
[2020-12-13 05:58] VITALS: BP 162/78
[2020-12-13 06:16] LABS: HEMATOCRIT 26.4 % (36.0-47.0); HEMOGLOBIN 8.7 g/dL (12.0-15.5); RED BLOOD COUNT 3.07 x10^6/uL (3.50-5.40); RED CELL DISTRIBUTION WIDTH 13.9 % (11.5-14.5); WHITE BLOOD COUNT 14.6 x10^3/uL (4.0-11.0)
[2020-12-13 06:35] LABS: ALBUMIN 1.8 g/dL (3.4-5.0); ALBUMIN/GLOBULIN RATIO 0.4 (1.0-1.7); CALCIUM 7.5 mg/dL (8.5-10.1); CREATININE 0.9 mg/dL (0.6-1.0); GFR 65.5; POTASSIUM 3.5 mmol/L (3.5-5.1); TOTAL BILIRUBIN 0.3 mg/dL (0.2-1.0); TOTAL PROTEIN 6.4 g/dL (6.4-8.2)
[2020-12-13] MEDS: INSULIN LISPRO 300 UNITS/3 ML VIAL. SQ SCH ×3 (08:00→17:29)
[2020-12-13] MEDS: LACTOBACILLUS RHAMNOSUS GG 1 CAPSULE. PO SCH ×2 (08:47→20:41)
--- NOTE | 2020-12-13 08:55 | PDOC2 ---
ZEINAB HERBERT CAREER DISCOVERY TEACHER 12/13/20 0855: CARDIAC CONSULT DATE OF CONSULT DOS: DATE: 12/13/20 TIME: 08:45 REASON FOR CONSULT Reason for Consult Possible infective endocarditis REFERRING PHYSICIAN Referring Physician Dr. Guzman SOURCE Source: Chart review, Patient HPI History of Present Illness This is a 55 yo male who presented secondary to chest pain and shortness of breath. Reports generalized fatigue, nausea, and cough productive of brown sputum. Has been short of breath for the last 4-5 days. Pain in her left chest that is worse with coughing. Was seen here in ED 12/05. CT chest with bilateral infiltrates. Was discharged with antibiotic therapy. Patient reports compliance with this but has not improved so she returned to the ED for further evaluation and treatment. Blood culture + for GPC in 01/20 bottle. Consult was obtained for possible endocarditis given bacteremia. Patient denies any recent history of bacteremia. Denies any IV drug use. History of cocaine use many years ago. Has chronic pain in back and right knee and is on oral morphine. Has admission earlier this month for withdrawl as she ran out. Is here from [place] visiting daughter in the who recently had a baby. Tells me she was prescribed Percocet in [place] for pain, although reports she does not have a PCP. No prior history of CAD or CHF known. PAST MEDICAL HISTORY Cardiovascular: HTN, hyperipidemia Pulmonary: COPD Musculoskeletal: Other (chronic back pain ) Endocrine: Diabetes PAST SURGICAL HISTORY Past Surgical History: Cholecystectomy, Hysterectomy, Tonsillectomy FAMILY HISTORY Family History: Other (noncontributory ) SOCIAL HISTORY Smoke: <1 pack per day ALCOHOL: none Drugs: None Lives: Alone (is here from [place] visiting daughter ) CURRENT MEDICATIONS Current Medications Current Medications Aspirin (Jaymie Aspirin) 325 mg 1X ONCE PO Last administered on 12/11/20at 19:58; Start 12/11/20 at 19:00; Stop 12/11/20 at 19:07; Status DC Sodium Chloride 1,000 ml @ 1,000 mls/hr 1X ONCE IV Last administered on 12/11/20at 19:48; Start 12/11/20 at 19:00; Stop 12/11/20 at 19:59; Status DC Dexamethasone Sodium Phosphate (Decadron) 10 mg 1X ONCE IV Last administered on 12/11/20at 19:49; Start 12/11/20 at 19:00; Stop 12/11/20 at 19:07; Status DC Fentanyl Citrate (Fentanyl 2ml Vial) 50 mcg 1X ONCE IV Last administered on 12/11/20at 19:49; Start 12/11/20 at 19:45; Stop 12/12/20 at 17:31; Status DC Piperacillin Sod/ Tazobactam Sod 4.5 gm/Sodium Chloride 50 ml @ 100 mls/hr 1X ONCE IV Last administered on 12/11/20at 20:06; Start 12/11/20 at 20:00; Stop 12/11/20 at 20:29; Status DC Sodium Chloride 50 ml @ As Directed STK-MED ONCE .ROUTE ; Start 12/11/20 at 20:02; Stop 12/11/20 at 20:02; Status DC Piperacillin Sod/ Tazobactam Sod (Zosyn) 4.5 gm STK-MED ONCE IV ; Start 12/11/20 at 20:02; Stop 12/11/20 at 20:03; Status DC Levofloxacin/ Dextrose 150 ml @ 100 mls/hr 1X ONCE IV Last administered on 12/11/20at 23:16; Start 12/11/20 at 20:45; Stop 12/11/20 at 22:14; Status DC Vancomycin HCl (Vanco Per Pharmacy) 1 each PRN DAILY PRN MC SEE COMMENTS Last administered on 12/12/20at 11:51; Start 12/11/20 at 20:45 Vancomycin HCl 1.25 gm/Sodium Chloride 250 ml @ 166.667 mls/hr 1X ONCE IV Last administered on 12/11/20at 21:35; Start 12/11/20 at 21:00; Stop 12/11/20 at 22:29; Status DC Ondansetron HCl (Zofran) 4 mg PRN Q4HRS PRN IVP NAUSEA/VOMITING Last administered on 12/12/20at 19:42; Start 12/11/20 at 20:45; Stop 12/12/20 at 20:44; Status DC Fentanyl Citrate (Fentanyl 2ml Vial) 50 mcg PRN Q2HR PRN IVP PAIN Last administered on 12/12/20at 19:43; Start 12/11/20 at 20:45; Stop 12/12/20 at 20:39; Status DC Sodium Chloride 1,000 ml @ 75 mls/hr [id number] IV Last administered on 12/12/20at 09:58; Start 12/11/20 at 20:45; Stop 12/12/20 at 20:44; Status DC Acetaminophen (Tylenol) 650 mg PRN Q4HRS PRN PO FEVER > 100.3'F; Start 12/11/20 at 20:45; Stop 12/12/20 at 20:44; Status DC Insulin Human Lispro (HumaLOG) 0-5 UNITS TIDWMEALS SQ Last administered on 12/12/20at 17:42; Start 12/12/20 at 08:00 Dextrose (Dextrose 50%-Water Syringe) 12.5 gm PRN Q15MIN PRN IV SEE COMMENTS; Start 12/11/20 at 20:45 Vancomycin HCl 1 gm/Sodium Chloride 250 ml @ 250 mls/hr Q24H IV Last administered on 12/12/20at 19:42; Start 12/12/20 at 21:00 Levofloxacin/ Dextrose 150 ml @ 100 mls/hr Q48H IV ; Start 12/13/20 at 21:00 Piperacillin Sod/ Tazobactam Sod 2.25 gm/Sodium Chloride 50 ml @ 100 mls/hr Q6HRS IV ; Start 12/12/20 at 12:00; Stop 12/12/20 at 07:50; Status DC Piperacillin Sod/ Tazobactam Sod 3.375 gm/Sodium Chloride 50 ml @ 100 mls/hr Q6HRS IV Last administered on 12/13/20at 05:16; Start 12/12/20 at 12:00 Lactobacillus Rhamnosus (Culturelle) 1 cap BID PO ; Start 12/12/20 at 21:00 Vancomycin HCl (Vancomycin Trough Level) 1 each 1X ONCE MC ; Start 12/13/20 at 20:30; Stop 12/13/20 at 20:31 Nicotine Polacrilex (Nicorette Gum) 2 mg PRN Q1HR PRN BC SMOKING CESSATION; Start 12/12/20 at 11:00 Sodium Chloride 1,000 ml @ 100 mls/hr Q10H IV Last administered on 12/12/20at 19:42; Start 12/12/20 at 17:30 Morphine Sulfate (Morphine 4mg Syringe) 4 mg PRN Q4HRS PRN IV PAIN Last administered on 12/13/20at 06:00; Start 12/12/20 at 17:45 Melatonin (Melatonin) 3 mg PRN QHS PRN PO INSOMNIA Last administered on 12/12/20at 23:32; Start 12/12/20 at 23:15 Ondansetron HCl (Zofran) 4 mg PRN Q4HRS PRN IVP NAUSEA/VOMITING Last administered on 12/13/20at 05:15; Start 12/12/20 at 23:30 Active Scripts Active Percocet 10-325 Mg Tablet (Oxycodone Hcl/Acetaminophen) 1 Each Tablet 1 Tab PO PRN Q6HRS PRN Azithromycin Tablet (Azithromycin) 250 Mg Tablet 1 Pkg PO UD 5 Days 2 the first day followed by 1 for days 2-5 Reported [Lisinopril] Unknown Dose [Metoprolol] Unknown Dose [Humalog] Unknown Dose [Lantus] Unknown Dose [Aspirin] Unknown Dose [Morphine] Unknown Dose ALLERGIES Allergies: Coded Allergies: Iodinated Contrast Media (Verified Allergy, Intermediate, 12/11/20) buprenorphine (Verified Allergy, Intermediate, 12/11/20) Takes morphine at home codeine (Verified Allergy, Intermediate, 12/11/20) Takes morphine at home naloxone (Verified Allergy, Intermediate, 12/11/20) ROS Review of Systems 14 point ROS conducted with pertinent positives noted above in HPI PHYSICAL EXAM General: Alert, Oriented X3, Cooperative, mild distress HEENT: Atraumatic Lungs: Other (dine crackles ) Heart: Regular rate (SR/ST) Abdomen: Other (diffuse tenderness ) Extremities: Other (trace bilateral LE edema ) Skin: No rashes, No breakdown Neuro: Normal speech, Sensation intact Psych/Mental Status: Other (anxious, tearful) MUSCULOSKELETAL: Osteoarthritic changes both hands VITALS Vital Signs Vital Signs Date Time Temp Pulse Resp B/P (MAP) Pulse Ox O2 Delivery O2 Flow Rate FiO2 12/13/20 06:54 95 Room Air 12/13/20 05:58 97.6 86 18 162/78 (106) LABS LABS Laboratory Tests Test 12/11/20 19:22 12/11/20 22:08 12/12/20 00:53 12/13/20 06:02 White Blood Count 16.3 x10^3/uL (4.0-11.0) 14.6 x10^3/uL (4.0-11.0) Red Blood Count 3.85 x10^6/uL (3.50-5.40) 3.07 x10^6/uL (3.50-5.40) Hemoglobin 10.8 g/dL (12.0-15.5) 8.7 g/dL (12.0-15.5) Hematocrit 33.0 % (36.0-47.0) 26.4 % (36.0-47.0) Mean Corpuscular Volume 86 fL (79-100) 86 fL (79-100) Mean Corpuscular Hemoglobin 28 pg (25-35) 28 pg (25-35) Mean Corpuscular Hemoglobin Concent 33 g/dL (31-37) 33 g/dL (31-37) Red Cell Distribution Width 13.7 % (11.5-14.5) 13.9 % (11.5-14.5) Platelet Count 141 x10^3/uL (140-400) 145 x10^3/uL (140-400) Neutrophils (%) (Auto) 94 % (31-73) Lymphocytes (%) (Auto) 2 % (24-48) Monocytes (%) (Auto) 4 % (0-9) Eosinophils (%) (Auto) 0 % (0-3) Basophils (%) (Auto) 0 % (0-3) Neutrophils # (Auto) 15.3 x10^3uL (1.8-7.7) Lymphocytes # (Auto) 0.4 x10^3/uL (1.0-4.8) Monocytes # (Auto) 0.6 x10^3/uL (0.0-1.1) Eosinophils # (Auto) 0.0 x10^3/uL (0.0-0.7) Basophils # (Auto) 0.0 x10^3/uL (0.0-0.2) Segmented Neutrophils % 92 % (35-66) Lymphocytes % 5 % (24-48) Monocytes % 3 % (0-10) Platelet Estimate Adequate (ADEQUATE) Sodium Level 132 mmol/L (136-145) 133 mmol/L (136-145) Potassium Level 4.5 mmol/L (3.5-5.1) 3.5 mmol/L (3.5-5.1) Chloride Level 99 mmol/L (98-107) 103 mmol/L (98-107) Carbon Dioxide Level 23 mmol/L (21-32) 20 mmol/L (21-32) Anion Gap 10 (6-14) 10 (6-14) Blood Urea Nitrogen 42 mg/dL (7-20) 41 mg/dL (7-20) Creatinine 1.3 mg/dL (0.6-1.0) 0.9 mg/dL (0.6-1.0) Estimated GFR (Cockcroft-Gault) 42.8 65.5 BUN/Creatinine Ratio 32 (6-20) 46 (6-20) Glucose Level 245 mg/dL (70-99) 217 mg/dL (70-99) Lactic Acid Level 1.5 mmol/L (0.4-2.0) Calcium Level 8.3 mg/dL (8.5-10.1) 7.5 mg/dL (8.5-10.1) Magnesium Level 1.8 mg/dL (1.8-2.4) Total Bilirubin 0.8 mg/dL (0.2-1.0) 0.3 mg/dL (0.2-1.0) Aspartate Amino Transf (AST/SGOT) 19 U/L (15-37) 19 U/L (15-37) Alanine Aminotransferase (ALT/SGPT) 22 U/L (14-59) 26 U/L (14-59) Alkaline Phosphatase 151 U/L (46-116) 109 U/L (46-116) Creatine Kinase 18 U/L (26-192) Creatine Kinase MB (Mass) < 0.5 ng/mL (0.0-3.6) Creatine Kinase MB Relative Index 2.8 % (0-4) Troponin I Quantitative 0.019 ng/mL (0-0.055) 0.031 ng/mL (0-0.055) 0.022 ng/mL (0-0.055) GH-Flc-X-Type Natriuretic Peptide 1505 pg/mL (0-124) Total Protein 7.6 g/dL (6.4-8.2) 6.4 g/dL (6.4-8.2) Albumin 2.3 g/dL (3.4-5.0) 1.8 g/dL (3.4-5.0) Albumin/Globulin Ratio 0.4 (1.0-1.7) 0.4 (1.0-1.7) Lipase 78 U/L (73-393) 195 U/L (73-393) Lactate Dehydrogenase 171 U/L (81-234) ASSESSMENT/PLAN Assessment/Plan 1. Chest pain, atypical. AMI ruled out. More pleuritic in nature 2. Dyspnea with probable PNA and mild acute probable diastolic CHF 3. Leukocytosis, sepsis, bacteremia; BC with GPC. Denies IV drug use 4. Anemia 5. Hypertension; controlled 6. Hyperlipidemia 7. Diabetes, II 8. RONAN; s/p IV fluids 9. Chronic back pain with opioid use. Recently admitted for morphine withdrawal 10. Abdominal pain, nausea; CT abdomen/pelvis with nonobstructing right renal calculus; no obstructive uropathy noted. Abdominal US with hepatosplenomegaly and mild right-sided hydronephrosis 2. Splenomegaly Recommendations Echocardiogram Procalcitonin level Ongoing antibiotic therapy Follow cultures Consider LIZETTE to r/o endocarditis if MSSA or MSRA bacteremia JAUN GARCIA MD 12/13/20 1748: CARDIAC CONSULT ASSESSMENT/PLAN Assessment/Plan Patient seen and examined. Agree with above nurse practitioner note Supportive care. ZEINAB HERBERT APRN Dec 13, 2020 08:55 JAUN GARCIA MD Dec 13, 2020 17:48
[2020-12-13 11:25] VITALS: BP 145/77
[2020-12-13 16:06] VITALS: BP 163/87
--- NOTE | 2020-12-13 16:12 | PN ---
DATE: 12/13/2020 SUBJECTIVE: The patient is resting, slightly propped up in bed, in no apparent respiratory distress. She continued to complain of nausea, continues with generalized pain; however, she is afebrile. PHYSICAL EXAMINATION: GENERAL: When I examined her, she looked pale, but no jaundice, cyanosis, or thyromegaly. No jugular venous distension. No lower limb edema. VITAL SIGNS: Her heart rate was 90, blood pressure was 145/77, temperature was 98.8, respiratory rate was 16, and oxygen saturation was 95% on room air. HEAD, EYES, EARS, NOSE, AND THROAT: Showed normocephalic, atraumatic. NECK: Supple. HEART: Showed normal first and second heart sounds. No gallop, rub, or murmur. CHEST: Clear to auscultation. No crepitation or rhonchi. ABDOMEN: Distended, soft, nontender. NEUROLOGIC: She was awake, alert, responding appropriately. All cranial nerves intact. She moves extremities without difficulty. Her intake over the last 24 hours was 1925, output was incompletely recorded. LABORATORY DATA: Showed a white cell count of 14,600, hemoglobin 8.7, hematocrit 26.4, MCV 86, and platelet count of 145,000. Her serum sodium was 133, potassium 3.5, chloride 103, bicarbonate 20, anion gap of 10, BUN 41, creatinine 0.9, estimated GFR was 65 mL per minute, her glucose was 117. Calcium was 7.5. Total bilirubin, AST, ALT, alkaline phosphatase were normal. Her lactate dehydrogenase was 171. Total protein 6.4, albumin was 1.8. Lipase was 195 and procalcitonin was 0.64. Her D-dimer was 2.48. Her blood cultures showing are gram-positive cocci in clusters suggestive of Staphylococcus in 2 of 4 bottles, 2 sets drawn. ASSESSMENT: Gram-positive bacteremia with pneumonia, hypertension, well controlled, hyperlipidemia, type 2 diabetes, acute kidney injury, for which she is on IV fluid, chronic back pain with opioid use, abdominal pain and nausea. Her spleen has dramatically enlarged. Her spleen size was normal on 11/28/2020, has increased on 12/05/2020, and increased further on 12/12/2020. She has hepatosplenomegaly and enlarged portal vein and splenic vein indicating back pressure. She has possible questionable injection sites on both lower extremities. I am concerned that the patient has endocarditis; therefore, we will continue with IV antibiotic, continue with IV fluid, continue with SCD for deep venous thrombosis prophylaxis. Continue with pain management. I have consulted the center receptionist and we will do a transthoracic echocardiogram. If need be, we might consider transesophageal echocardiograms; and for that, she needs to be transferred to [facility]. DOMINIC MCMULLEN MD DR: ABDON/ariella JOB#: [id number] / [id number]
[2020-12-13 20:04] VITALS: BP 153/75
[2020-12-13] MEDS: MELATONIN 3 MG TABLET PO PRN (20:41)
[2020-12-13 21:26] LABS: VANC TR 4.6 mcg/mL (10.0-20.0)
[2020-12-13] MEDS: VANCOMYCIN 1 GM in IV NORMAL SALINE 250ML 250 ML IV SCH (22:14)
[2020-12-13] MEDS: VANCOMYCIN PER PHARMACY MC PRN (22:20)
--- NOTE | 2020-12-13 22:24 | NUR ---
Pharmacy Vancomycin Dosing Note S:Consulted to monitor and dose vancomycin started 12/11/20. O:JESSICA ENGLISH is a 55 year old F with Cellulitis Pneumonia, . Height: 5 feet, 2 inches Weight: 54.6 kg [place] Body Weight: 50.10 Adjusted Body Weight: 51.66 Dosing Weight: Actual Other Antibiotics: LEVOFLOXACIN 750MG Q48HRS/ ZOSYN 3.375GRAM Q6HRS LABS: Last BUN: 41 Last Creatinine: 0.9 Creatinine Clearance: 59.23 Last WBC: 14.6 Drug Levels: Last Trough level: 4.6 on 12/13/20 at 2030 Last dose given 12/15/20 at 0830 Vancomycin Dosing: Loading Dose: 1250 mg x1 Dosing Weight: Actual Target Trough: 15-20 A: Based on: Trough and renal function P: 1. Begin Vancomycin 1000 mg IV q12h 2. Follow up Trough level on 12/13/20 at 2030 3. Pharmacy will continue to monitor, follow and adjust therapy as needed. JAH LEW, 12/13/20 [id number]
[2020-12-13 22:36] VITALS: BP 147/68
[2020-12-14] MEDS: PIPERACILLIN/TAZOBACTAM 3.375 GM in IV NORMAL SALINE 50ML 50 ML IV SCH ×4 (00:28→17:28)
[2020-12-14] MEDS: ONDANSETRON PF 4 MG/2 ML VIAL. IVP PRN ×5 (02:28→18:30)
[2020-12-14] MEDS: MORPHINE SULFATE 4 MG/ML DISP.SYRIN. IV PRN ×5 (02:29→18:30)
[2020-12-14 05:22] VITALS: BP 155/76
[2020-12-14] MEDS ORDERED: METHYL SALICYLATE/MENTHOL TOPICAL OINTMENT 57GM TUBE. TP PRN (05:30)
[2020-12-14 06:32] LABS: ALBUMIN 1.7 g/dL (3.4-5.0); ALBUMIN/GLOBULIN RATIO 0.4 (1.0-1.7); CALCIUM 7.4 mg/dL (8.5-10.1); CREATININE 0.7 mg/dL (0.6-1.0); GFR 87.5; POTASSIUM 3.8 mmol/L (3.5-5.1); TOTAL BILIRUBIN 0.5 mg/dL (0.2-1.0); TOTAL PROTEIN 6.2 g/dL (6.4-8.2)
[2020-12-14 07:02] LABS: HEMATOCRIT 23.5 % (36.0-47.0); HEMOGLOBIN 7.8 g/dL (12.0-15.5); RED BLOOD COUNT 2.72 x10^6/uL (3.50-5.40); RED CELL DISTRIBUTION WIDTH 13.6 % (11.5-14.5); WHITE BLOOD COUNT 10.7 x10^3/uL (4.0-11.0)
[2020-12-14] MEDS: LACTOBACILLUS RHAMNOSUS GG 1 CAPSULE. PO SCH ×2 (09:37→21:31)
[2020-12-14] MEDS: VANCOMYCIN 1 GM in IV NORMAL SALINE 250ML 250 ML IV SCH ×2 (09:40→21:32)
[2020-12-14] MEDS: IV NORMAL SALINE 1,000ML 1,000 ML IV SCH (09:41)
[2020-12-14] MEDS: INSULIN LISPRO 300 UNITS/3 ML VIAL. SQ SCH ×3 (09:44→17:32)
[2020-12-14 10:47] VITALS: BP 133/68
[2020-12-14 15:04] VITALS: BP 151/80
--- NOTE | 2020-12-14 18:57 | DS ---
DATE OF DISCHARGE: 12/14/2020 HOSPITAL COURSE: The patient is a 55-year-old female patient who presented to the Emergency Room of [facility] complaining of chest pain. She also complained of shortness of breath. She stated her symptoms started about 5 days ago and include generalized pleuritic chest pain and nonpositional-nonexertional shortness of breath. She also complained of generalized fatigue, nausea, and productive cough with brownish sputum. She was treated with azithromycin for pneumonia seen on CT scan. The patient has also COVID testing obtained, which was negative. She also had diarrhea, but C. diff was negative; however, her blood cultures, 4 bottles, were positive for gram-positive cocci that was grown in all 4 bottles and the final identification was Staphylococcus aureus. The sensitivity is still pending at the time of this dictation. Curiously, her spleen was normal on a CT scan of the abdomen done on 11/28/2020. The spleen has enlarged on 12/05/2020 and both liver and spleen have enlarged on 12/11/2020. She has also some skin horton on her both legs indicating that she might be injecting drugs, although she denied that. She was seen yesterday by the Cardiology team and she was supposed to have an echocardiogram that was not done. She has also back pain that has been worsening; and therefore, a decision was made to transfer her to [facility] to consult the Infectious Disease, the mixer operator tablets, as well as perhaps arrange for MRI of the thoracic and lumbar spine to see if there is any evidence of diskitis or osteomyelitis that is making her back pain worse. PHYSICAL EXAMINATION: GENERAL: When I saw her today, she was sitting on the edge of the bed, complaining of severe back pain. She was pale, but no jaundice, cyanosis, or thyromegaly. No jugular venous distension. No limb edema. VITAL SIGNS: Her heart rate was 95, blood pressure was 151/80, temperature 98.4, respiratory rate was 20, and oxygen saturation was 94% on room air. HEAD, EYES, EARS, NOSE AND THROAT: Showed normocephalic, atraumatic. NECK: Supple. HEART: Showed normal first and second heart sounds. No gallop or murmur. CHEST: Clear to auscultation. No crepitation or rhonchi. ABDOMEN: Distended, soft, nontender. NEUROLOGIC: She was awake, alert, responding appropriately. All her cranial nerves were intact. She moves extremities without difficulty. She is able to ambulate with a walker. LABORATORY DATA: Her lab work this morning showed the white cell count is trending down; and her white cell count was down to 10,700, down from 16,300. Hemoglobin also drifting down, today the hemoglobin was 7.8, hematocrit 23.5, MCV 86, and platelet count of 152. Her chemistry showed a serum sodium 135, potassium 3.8, chloride 104, bicarbonate 23, anion gap of 8, BUN 22, creatinine 0.7, estimated GFR was 87 mL per minute. Her glucose 180, calcium was 7.4. Total bilirubin, AST, ALT, alkaline phosphatase were normal. Total protein 6.2, albumin was 1.7. Her D-dimer was high at 2.48 and her C. diff toxin was negative. DISCHARGE MEDICATIONS: The patient will be transferred to [facility] to continue on vancomycin 1 gram IV q. 12 hours . Continue with levofloxacin 750 mg IV every 48 hours and piperacillin-tazobactam 3.375 grams IV every 6 hours. She is on morphine sulfate 4 mg IV every 4 hours, nicotine chewing gum 2 mg every hour. She is also on insulin sliding scale and lactobacillus twice a day and melatonin 3 mg once a day. FINAL DISCHARGE DIAGNOSES: Methicillin-resistant Staphylococcus aureus bacteremia, but high likely that the patient has infective endocarditis given that she has grown the methicillin-resistant Staphylococcus aureus in all 4 bottles. She has also sudden enlargement of both spleen and liver over the last 2 weeks. She has also pneumonia, hypertension, hyperlipidemia, type 2 diabetes, acute kidney injury that has resolved. We will obviously consult the Infectious Disease specialist, the mixer operator tablets that she will need transthoracic echocardiogram as well as she might require also transesophageal echocardiogram. We will also arrange for an MRI of her thoracic and lumbar spine and decide further management accordingly. DOMINIC MCMULLEN MD DR: ABDON/ariella JOB#: [id number] / [id number]
[2020-12-14 19:23] VITALS: BP 145/75
--- NOTE | 2020-12-14 21:41 | NUR ---
PATIENT DISCHARGED TO [facility] PER EMS. EMS GIVEN REPORT AND TELEMETRY STATUS. PATIENT VERBALIZED HAVING ALL BELONGINGS. VANCOMYCIN INFUSING AND PUMP SENT WITH EMS TO [facility]. EMS STATES THAT THEY WILL RETURN PUMP. CALL TO JOSE AT [facility] WITH UPDATE THAT 2100 MEDICATIONS GIVEN AND VANCOMYCIN INFUSING ON PUMP WITH EMS. PATIENT REQUESTING PAIN MEDICATION AND NOT DUE FOR 1 HOUR. PATIENT REQUESTED CALL TO NURSE AT [facility] TO HAVE PAIN MEDICATION AVAILABLE ON ARRIVAL. JOSE AT [facility] INFORMED OF PATIENT REQUEST AND STATED THAT THE DOCTOR HAD GIVEN ORDERS..
== END 2020-12-14 21:41 | disposition short-term general hospital (02) | DRG 871 ==
LOC: ER 18:31 → 1 SOUTH 12-12 05:15
PROVIDERS: ADMIT Hospitalist; ATTEND Hospitalist
DX: A41.02 Sepsis due to Methicillin resistant Staphylococcus aureus (principal); I33.0 Acute and subacute infective endocarditis; J18.9 Pneumonia, unspecified organism; I50.30 Unspecified diastolic (congestive) heart failure; J44.0 Chronic obstructive pulmonary disease with (acute) lower respiratory infection; L03.113 Cellulitis of right upper limb; N13.2 Hydronephrosis with renal and ureteral calculous obstruction; N17.9 Acute kidney failure, unspecified; F11.23 Opioid dependence with withdrawal; D64.9 Anemia, unspecified; E11.9 Type 2 diabetes mellitus without complications; B96.89 Other specified bacterial agents as the cause of diseases classified elsewhere; E78.5 Hyperlipidemia, unspecified; F17.210 Nicotine dependence, cigarettes, uncomplicated; G89.29 Other chronic pain; I11.0 Hypertensive heart disease with heart failure; Z90.710 Acquired absence of both cervix and uterus; I25.2 Old myocardial infarction
CPT/HCPCS: 36415; 71045; 74176; 76700; 80053; 80202; 82553; 82947; 83605; 83615; 83690; 83735; 83880; 84145; 84484; 85007; 85025; 85027; 85379; 87040; 87077; 87186; 87205; 87493; 93005; 93971; 96365; 96366; 96367; 96375; 99406; J1100; J1956; J2270; J2405; J2543; J3010; J3370; J7050; 97110; 99285-25; J7030